=== PATIENT | female | born 1930 | race Caucasian/White ===

== ENCOUNTER 2017-05-25 12:29 | Outpatient (RCR) | payer MEDICARE, BC ==
[~2017-05-25 12:29] MED LIST: ADULT LOW DOSE81 MG PO; CARISOPRODOL350 MG PO; CATAPRES0.1 MG PO; ESGIC PLUS CAP1 EACH PO; FUROSEMIDE40 MG PO; GABAPENTIN300 MG PO; GLUCOPHAGE1000 MG PO; LEXAPRO10 MG PO; LORTAB 10-5001 EACH PO; LOSARTAN POTASS50 MG PO; METOPROLOL SUC100 MG PO; PREDNISONE; XARELTO20 MG PO
[2017-05-25 16:13] LABS: ALBUMIN 3.5 g/dL (3.5-5.0); BILIRUBIN,DIRECT 0.2 mg/dL (0.0-0.5)
[2017-05-25] MEDS ORDERED: LIDOCAINE VISC 2% SOLN 15 ML UDC ONE (16:52)
== END 2017-06-06 ==
LOC: WCC 12:29
PROVIDERS: ATTEND Podiatrist Foot & Ankle Surgery
DX: S81.801A Unspecified open wound, right lower leg, initial encounter (principal); S91.001A Unspecified open wound, right ankle, initial encounter; M96.89 Other intraoperative and postprocedural complications and disorders of the musculoskeletal system; I10 Essential (primary) hypertension; E78.00 Pure hypercholesterolemia, unspecified
CPT/HCPCS: 36415; 80076

== ENCOUNTER → 2017-09-04 | Emergency (ER) | payer MEDICARE, BC ==
[~2017-09-04] VITALS: Ht 167.6 cm; Wt 83.5 kg
--- NOTE | 2017-09-04 10:50 | Diagnostic Imaging Report ---
EXAM: FOREARM LEFT 2 VIEW DATE: 09/04/2017 9:48 AM INDICATION: \S\FELL, C/O FOREARM PAIN \S\Y COMPARISON: None FINDINGS: Nondisplaced radial head fracture again noted. Moderate degenerative changes base of first ray. Remainder of radius/ulna unremarkable. IMPRESSION: Nondisplaced radial head fracture. Signed by: Dr. Roosevelt Christiansen MD on 09/04/2017 10:47 AM
--- NOTE | 2017-09-04 10:50 | Diagnostic Imaging Report ---
EXAM: ELBOW LEFT COMPLETE DATE: 09/04/2017 9:48 AM INDICATION: \S\FELL, C/O FOREARM PAIN \S\Y COMPARISON: None FINDINGS: On the lateral view there is elevation of the anterior fat pad consistent with joint effusion. Essentially nondisplaced radial head fracture present. Associated soft tissue swelling noted. IMPRESSION: Nondisplaced radial head fracture with joint effusion. Signed by: Dr. Roosevelt Christiansen MD on 09/04/2017 10:46 AM
--- NOTE | 2017-09-04 14:52 | Diagnostic Imaging Report ---
History:Fall Comparison studies: Head CTs on 03/12/2013, 09/17/11 , 11/19/12 Technique: Axial images were obtained from the skull base to the vertex. Coronal and sagittal images reconstructed from the axial data. Intravenous contrast: None Discussion: See impression Impression: 1. No change since the previous examinations. No acute intracranial abnormalities. 2. No interval changes when compared with the previous head CTs. Persistent findings: Old right frontal craniotomy. Mild age related generalized volume loss. Mild chronic microvascular ischemic changes. Signed by: DR Ruslan Mortensen M.D. on 09/04/2017 11:15 AM
--- NOTE | 2017-09-04 14:52 | Diagnostic Imaging Report ---
EXAM: HUMERUS LEFT 2+VIEWS DATE: 09/04/2017 10:47 AM INDICATION: \S\FALL ARM PAIN \S\Y COMPARISON: Same day elbow radiographs FINDINGS: Nondisplaced radial head fracture and joint effusion separately described. Mild acromioclavicular and glenohumeral joint arthritis present. Surgical clips overlie left axilla. IMPRESSION: Radial head fracture. Signed by: Dr. Roosevelt Christiansen MD on 09/04/2017 11:19 AM
--- NOTE | 2017-09-04 14:52 | Diagnostic Imaging Report ---
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 Mild scattered IP and MCP joint degenerative changes noted. No fracture identified. IMPRESSION: Degenerative changes. Signed by: Dr. Roosevelt Christiansen MD on 09/04/2017 11:19 AM
== END | disposition home or self-care (01) ==
LOC: ER 09:12
DX: S00.83XA Contusion of other part of head, initial encounter (principal); S52.125A Nondisplaced fracture of head of left radius, initial encounter for closed fracture; W01.190A Fall on same level from slipping, tripping and stumbling with subsequent striking against furniture, initial encounter; Y92.008 Other place in unspecified non-institutional (private) residence as the place of occurrence of the external cause; I10 Essential (primary) hypertension; E11.9 Type 2 diabetes mellitus without complications; I48.91 Unspecified atrial fibrillation; F41.9 Anxiety disorder, unspecified; Z95.810 Presence of automatic (implantable) cardiac defibrillator; Z85.3 Personal history of malignant neoplasm of breast
CPT/HCPCS: 70450

== ENCOUNTER 2019-01-18 15:27 | Emergency (ER) | payer MEDICARE, BC ==
[~2019-01-18] VITALS: Ht 167.6 cm; Wt 83.5 kg
--- NOTE | 2019-01-18 17:03 | Diagnostic Imaging Report ---
Abdomen, 1 view. History: Constipation, abdominal pain. Findings: Air is scattered throughout nondilated small and large bowel. Retained stool is present scattered throughout the colon. Calcified phleboliths are present within the pelvis bilaterally. 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 IMPRESSION: Non-specific bowel gas pattern. Signed by: Ector Dinero on 01/18/2019 5:00 PM
[2019-01-18 18:14] VITALS: BP 132/63
--- OUTSIDE RECORDS SUMMARY | 2019-01-26 11:30 | XMS REPORT ---
Author Author [facility] Address Unknown Phone Unavailable Care Team Providers Care Rougher Helper Name Role Phone ECTOR KNIGHT Unavailable Unavailable Emily UMANZOR Unavailable Unavailable Payers Payer Name Policy Type Policy Number Effective Date Expiration Date Problems This patient has no known problems. Allergies, Adverse Reactions, Alerts Allergy Name Allergy Type Status Severity Reaction(s) Onset Date Inactive Date Treating Clinician Comments No Known Allergies DA Active U 2018-05-04 00:00:00 iodine DA Active SV 2017-02-21 00:00:00 shellfish derived DA Active SV 2017-02-21 00:00:00 Medications This patient has no known medications. Results Test Description Test Time Test Comments Text Results Atomic Results Result Comments [facility]-1VIEW (KUB) 2019-01-18 16:59:00 [place] [address] Patient Name: COLEMAN LANDRUM MR #: [id number] : 1930 Age/Sex: 88/F Req #: [id number] Adm Physician: Ordered by: SANFORD WELDON PUBLIC HEALTH ADVISOR Report #: [id number] Location: ER Room/Bed: Procedure: [id number] DX/ABDOMEN-1VIEW (KUB) Exam Date: 01/18/19 Exam Time: 1620 REPORT STATUS: Signed Abdomen, 1 view. History: Constipation, abd ominal pain. Findings: Air is scattered throughout nondilated small and large bowel. Retained stool is present scattered throughout the colon. Calcified phleboliths are present within the pelvis bilaterally. 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 IMPRESSION: Non-specific bowel gas pattern. Signed by: Ector Dinero on 01/18/2019 5:00 PM Dictated By: ECTOR DINERO MD 99 Transcribed By: ИРИНА on 01/18/191699 COPY TO: SANFORD WELDON PUBLIC HEALTH ADVISOR - CT LOWER EXTRM W/O C RT 2018-12-21 16:45:00 Name: COLEMAN LANDRUM [facility] : 1930 Age/S: 88 / F [address] [facility] Unit #: [id number] Loc: [place] [address] Phys: Nohemi Hurst MD Acct: [id number] Dis Date: Status: REG CLI PHONE #: [phone] Exam Date: 12/21/2018 1635 FAX #: [phone] Reason: ACUTE RIGHT HIP PAIN EXAMS: CPT CODE: [id number] [place] L[place] EXTRM W/[place] [address] EXAM: CT of the right hip without contrast; INFORMATION: Severe, acute right hip pain; M25.551 TECHNIQUE AND FINDINGS: CT dose reduction protocol; 2.5 mm axial scans; sagittal and coronal reconstructions. 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 Hardware is well-positioned; no evidence of loosening or infection. Imaged bones are intact; no evidence of fracture or dislocation. Periarticular soft tissues are unremarkable. IMPRESSION: 1. No evidence of acute osseous trauma. 2. No evidence of osteomyelitis or septic arthritis. 3. Well-positioned and intact orthopedic hardware after right hip arthroplasty. Location code: [facility] at 1645 Reported and signed by: Lucian Olivarez M.D. CC: Technologist:Gertrude Bolaños RT(R) CTDI: DLP: Trnscb Date/Time: 12/21/2018 (1644) Aniceto Orig Print D/T: S: 12/21/2018 (1111) PAGE 1 Signed Report GLUBED 2018-08-02 16:10:00 GLUBED (test code=GLUBED) 97 mg/dL 74-106 Performed by certified beam press operator at [facility] [id number] 13:19:00* Test Item Value Reference Range Comments GLUBED (test code=GLUBED) 102 mg/dL 74-106 Performed by certified beam press operator at [facility] [id number] 07:12:00* Test Item Value Reference Range Comments GLUBED (test code=GLUBED) 95 mg/dL 74-106 Performed by certified beam press operator at [facility] [id number] 21:48:00* Test Item Value Reference Range Comments GLUBED (test code=GLUBED) 98 mg/dL 74-106 Performed by certified beam press operator at [facility] [id number] 16:32:00* Test Item Value Reference Range Comments GLUBED (test code=GLUBED) 125 mg/dL 74-106 Performed by certified beam press operator at [facility] - CT CHEST W/O [id number] 14:14:00 Name: COLEMAN LANDRUM [facility] : 1930 Age/S: 88 / F [address] [place] [address] Unit #: [id number] Loc: [place] [address] Phys: Ousmane Cordova NP Acct: [id number] Dis Date: Status: ADM IN PHONE #: [phone] Exam Date: 08/01/2018 1348 FAX #: [phone] Reason: Rt scapula/rt chest wall/flank pain EXAMS: CPT CODE: [id number] CT CHEST W/O CONTRAST 48242 HISTORY: Right scapular and right chest wall and flank pain. COMPARISON: CT chest from May 11, 2018. CT chest without contrast: Automated exposure control. Ill- defined groundglass nodule within the left lateral subpleural lung base measuring 1.7 x 1.8 x 1.6 cm and appears unchanged. Additional 1.3 x 1.2 x 1 cm groundglass nodule in the medial left lung base is unchanged as well. These appear suspicious. Bronchoalveolar carcinoma can present in such a fashion. Close follow-up. No other nodules. No acute infiltrates, effusion or congestion. No bronchiectasis, honeycombing or fibrosis or endobronchial lesions. Normal caliber unopacified aorta and pulmonary arteries. Thyroid glands are unremarkable. No pathologic adenopa thy. Esophageal wall is not thickened. Axillary clips on the left. Moderat e cardiomegaly without pericardial effusion. Right ICD with the leads in t he right atrium and right ventricle. Visualized upper abdome n is unremarkable. Subcutaneous tissues and the musculature are normal in appearance. No lytic or blastic lesions are noted within the bony skeleton . IMPRESSION: No acute infiltrates, effusion o r congestion. Left lower lobe lung base 1.8 cm groundglass nod ule laterally and 1.3 cm groundglass nodule in the medial left base. The se are stable from previous examination. These appear suspicious and cou ld represent bronchoalveolar carcinoma. Close follow-up. No other lesion s. No pathologic adenopathy. at 1414 Reported and signed by : Howie Gar M.D. CC: Ousmane Cordova NP; Sky Knight Technologist:Eros Boyd RT(R),(MR),(CT) CTDI: DLP: Trnscb Date/Time: 08/01/2018 (1414) t.SDR.TH4 Orig Print D/T: S: 08/01/2018 (1869) PAGE 1 Signed Report [id number] 12:17:00* Test Item Value Reference Range Comments GLUBED (test code=GLUBED) 94 mg/dL 74-106 Performed by certified beam press operator at [facility] [id number] 06:08:00* Test Item Value Reference Range Comments GLUBED (test code=GLUBED) 103 mg/dL 74-106 Performed by certified beam press operator at [facility] [id number] 04:22:00* Test Item Value Reference Range Comments TROPONIN-I (test code=TROPI) 0.110 ng/mL 0-0.045 PREVIOUSLY CALLED COMMENTS TO CATTLE BRANDER: COLLECT 3 HOURS AFTER PREVIOUS [id number] 04:22:00* Test Item Value Reference Range Comments TROPONIN-I (test code=TROPI) 0.110 ng/mL 0-0.045 PREVIOUSLY CALLED COMMENTS TO CATTLE BRANDER: COLLECT 3 HOURS AFTER PREVIOUS [id number] 20:38:00* Test Item Value Reference Range Comments GLUBED (test code=GLUBED) 96 mg/dL 74-106 Performed by certified beam press operator at [facility] [id number] 20:03:00* Test Item Value Reference Range Comments TROPONIN-I (test code=TROPI) 0.11 ng/mL 0.00-0.056 Results called to ERROL OLGUIN by V.LAB.AV1 07/31/18 2003Critical results verified and read back by Nurse? Y COMMENTS TO CATTLE BRANDER: COLLECT 3 HOURS AFTER PREVIOUS SAMPLEBASIC METABOLIC [id number] 16:35:00* Test Item Value Reference Range Comments SODIUM (test code=NA) 146 mmol/L 135-148 POTASSIUM (test code=K) 4.7 mmol/L 3.5-5.1 CHLORIDE (test code=CL) 108 mmol/L 101-109 CARBON DIOXIDE (test code=CO2) 27.1 mmol/L 21-32 ANION GAP (test code=GAP) 16 mmol/L 10-20 GLUCOSE (test code=GLU) 101 mg/dL 74-106 BLOOD UREA NITROGEN (test code=BUN) 22 mg/dL 3-21 GLOMERULAR FILTRATION RATE (test code=GFR) 56 mL/min >=60 Estimated GFR by using Modified MDRD formula.Chronic kidney disease is defined as either kidney damageor GFR <60 mL/min/1.73 m2 for >3 months. CREATININE (test code=CREAT) 0.95 mg/dL 0.55-1.3 BUN/CREATININE RATIO (test code=BUN/CREA) 23.2 10-20 CALCIUM (test code=CA) 9.2 mg/dL 8.4-10.2 [id number] 16:35:00* Test Item Value Reference Range Comments TROPONIN-I (test code=TROPI) 0.10 ng/mL 0.00-0.056 Results called to JAMAL De La Rosa V.LAB.AV1 07/31/18 1635Critical results verified and read back by Nurse? Y B-TYPE NATRIURETIC [id number] 16:34:00* Test Item Value Reference Range Comments B-TYPE NATRIURETIC PEPTIDE (test code=BNP) 207 pg/mL 0-100 PROTHROMBIN [id number] 16:32:00* Test Item Value Reference Range Comments PROTHROMBIN TIME PATIENT (test code=PTP) 9.8 seconds 9.0-13.0 INTERNATIONAL NORMAL RATIO (test code=INR) 1.0 0.8-1.2 The therapeutic range for oral anticoagulant therapy formost indications is an international normalized ratio (INR)of between 2.0 and 3.0. The recommended therapeutic INRrange for various clinical situations is listed below: Clinical Situation INR range Pulmonary e mbolism treatment (2.0-3.0)Venous thrombosis treatmentVenous thrombosis prophylaxis (high risk surgery)Prevention of systemic embolism from: Acute myocardial infarction Valvular heart disease Atrial fibrillation Mechanical prosthetic heart valves (2.5-3.5) IS PATIENT ON ANTICOAGULANTS? NTHROMBOPLASTIN TIME [id number] 16:32:00* Test Item Value Reference Range Comments THROMBOPLASTIN TIME PARTIAL (test code=PTT) 27.8 seconds 25.5-34.3 Therapeutic Range for patients on Heparin Therapy is 2 to2.5 times their baseline PTT level. IS PATIENT ON ANTICOAGULANTS? NBASIC METABOLIC [id number] 16:28:00* Test Item Value Reference Range Comments SODIUM (test code=NA) 146 mmol/L 135-148 POTASSIUM (test code=K) 4.7 mmol/L 3.5-5.1 CHLORIDE (test code=CL) 108 mmol/L 101-109 CARBON DIOXIDE (test code=CO2) 27.1 mmol/L 21-32 ANION GAP (test code=GAP) 16 mmol/L 10-20 GLUCOSE (test code=GLU) 101 mg/dL 74-106 BLOOD UREA NITROGEN (test code=BUN) 22 mg/dL 3-21 GLOMERULAR FILTRATION RATE (test code=GFR) 56 mL/min >=60 Estimated GFR by using Modified MDRD formula.Chronic kidney disease is defined as either kidney damageor GFR <60 mL/min/1.73 m2 for >3 months. CREATININE (test code=CREAT) 0.95 mg/dL 0.55-1.3 BUN/CREATININE RATIO (test code=BUN/CREA) 23.2 10-20 CALCIUM (test code=CA) 9.2 mg/dL 8.4-10.2 [id number] 16:28:00* Test Item Value Reference Range Comments TROPONIN-I (test code=TROPI) ng/mL 0-0.045 - XR CHEST 2 [id number] 16:25:00 Name: COLEMAN LANDRUM [facility] : 1930 Age/S:88 /F [address] [facility] Unit#:[id number] Loc: [place] [address] Phys: Livan Del Cid MD Dis Date: PHONE #: [phone] Status: REG ER FAX #: [phone] Exam Date: 07/31/2018 Reason: chest pain EXAMS: CPT CODE: [id number] XR CHEST 2 V 49829 REASON FOR EXAM: chest pain Exam Order Date: 07/31/2018 4:01 PM Ordering MGreg: Livan Del Cid MD PROCEDURE: - XR CHEST 2 V COMPARISON: 02/21/2017 FINDINGS: PA and lateral views of the chest show clear lungs without evidence of consolidation. No evidence of effusion. The heart size is minimally enlarged. Pulmonary vasculatures are unremarkable. The osseous structures are grossly intact axillary lymph node dissection clips. Stable appearance of the right subclavian pacemaker. IMPRESSION: No active disease. at 1625 Reported and signed by: Loy Oleary M.D. CC: Livan Del Cid MD Technologist: Liliane Seo Trnscrpt Data: 07/31/2018 (9532) Joni Orig Print D/T: S: 07/31/2018 (1305) PAGE 1 Signed Report CBC W/O [id number] 16:15:00* Test Item Value Reference Range Comments WHITE BLOOD CELL (test code=WBC) 9.9 K/mm3 4.5-12.5 RED BLOOD CELL (test code=RBC) 4.62 mill/mm3 3.7-5.2 HEMOGLOBIN (test code=HGB) 12.6 gram/dL 11.5-15.5 HEMATOCRIT (test code=HCT) 39.7 % 36.0-46.0 MEAN CELL VOLUME (test code=MCV) 85.9 fL 80-98 MEAN CELL HGB (test code=MCH) 27.3 picogram 27.0-33.0 MEAN CELL HGB CONCETRATION (test code=MCHC) 31.7 gram/dL 33.0-36.0 RED CELL DISTRIBUTION WIDTH (test code=RDW) 17.0 % 11.6-16.2 RED CELL DISTRIBUTION WIDTH SD (test code=RDW-SD) 54.8 fL 37.0-51.0 PLATELET COUNT (test code=PLT) 356 K/mm3 150-450 MEAN PLATELET VOLUME (test code=MPV) 9.8 fL 6.7-11.0 - CT L-SPINE W/O [id number] 16:38:00 Name: COLEMAN LANDRUM [facility] : 1930 Age/S: 88 / F [address] [facility] Unit #: [id number] Loc: [place] [address] Phys: Nohemi Hurst MD Acct: [id number] Dis Date: Status: REG CLI PHONE #: [phone] Exam Date: 07/11/2018 1630 FAX #: [phone] Reason: CHRONIC PAIN EXAMS: CPT CODE: [id number] CT L-SPINE W/O CONTRAST 89026 REASON FOR EXAM: CHRONIC PAIN EXAM ORDER DATE: 07/11/2018 4:24 PM Ordering Estelle: Nohemi Ramirez MD PROCEDURE: - CT L-SPINE W/O CONTRAST FINDINGS: CT images of the lumbar spine were obtained without IV contrast at 2.5mm. Reconstructed coronal and sagittal images were also provided. Dose modulation, iterative reconstruction, and/or weight based adjustment of the MA/KV was utilized to reduce the radiation dose to as low as reasonably achievable. The osseous structures are intact. Minimal anterior translation of L4 over 5 with left sided pars intera rticularis defect. No evidence of acute or chronic compression fracture The central canal is patent. Mild narrowing of L4-5 a nd L5-S1 disc space IMPRESSION: Grade 1 spondylolisthesis of L4- 5. at 1638 Reported and signed by: Loy Oleary M.D. CC: Technologist:Gertrude COLLIER(R) CTDI: DLP: Trnscb Date/Time: 07/11/2018 ( 1638) t.JUSTINE.GLORIAL Orig Print D/T: S: 07/11/2018 (5548) PAGE 1 Signed Report COAGULATION TIME [id number] 09:31:00* Test Item Value Reference Range Comments COAGULATION TIME ACTIVATED (test code=ACT) 313 seconds 62.8-88.0 COAGULATION TIME [id number] 09:31:00* Test Item Value Reference Range Comments COAGULATION TIME ACTIVATED (test code=ACT) 362 seconds 62.8-88.0 COAGULATION TIME [id number] 09:31:00* Test Item Value Reference Range Comments COAGULATION TIME ACTIVATED (test code=ACT) 198 seconds 62.8-88.0 COAGULATION TIME [id number] 23:09:00* Test Item Value Reference Range Comments COAGULATION TIME ACTIVATED (test code=ACT) 204 seconds 62.8-88.0 [id number] 12:37:00* Test Item Value Reference Range Comments GLUBED (test code=GLUBED) 207 mg/dL 74-106 Performed by certified beam press operator at [facility] [id number] 06:17:00* Test Item Value Reference Range Comments GLUBED (test code=GLUBED) 173 mg/dL 74-106 Performed by certified beam press operator at [facility] [id number] 20:53:00* Test Item Value Reference Range Comments GLUBED (test code=GLUBED) 216 mg/dL 74-106 Performed by certified beam press operator at [facility] [id number] 16:35:00* Test Item Value Reference Range Comments GLUBED (test code=GLUBED) 262 mg/dL 74-106 Performed by certified beam press operator at [facility] [id number] 11:36:00* Test Item Value Reference Range Comments GLUBED (test code=GLUBED) 193 mg/dL 74-106 Performed by certified beam press operator at [facility] [id number] 05:24:00* Test Item Value Reference Range Comments GLUBED (test code=GLUBED) 167 mg/dL 74-106 Performed by certified beam press operator at [facility] - CT CHEST W/O [id number] 21:35:00 Name: COLEMAN LANDRUM [facility] : 1930 Age/S: 87 / F [address] [facility] Unit #: [id number] Loc: [place] [address] Phys: Sky Knight MD Acct: [id number] Dis Date: Status: ADM IN PHONE #: [phone] Exam Date: 05/11/20182116 FAX #: [phone] Reason: SOB/COUGH/WHEEZING EXAMS: CPT CODE: [id number] CT CHEST W/O CONTRAST 30073 REASON FOR EXAM: SOB/COUGH/WHEEZING EXAM ORDER DATE: 05/11/2018 4:33 PM Ordering M.Cheyenne: Sky Gong MD PROCEDURE: - CT CHEST W/O CONTRAST FINDINGS: CT images of the chest were obtained without IV contrast. Reconstructed sagittal and coronal images of the chest were provided for interpretation. Dose modulation, iterative reconstruction, and/or weight based adjustment of the MA/KV was utilized to reduce the radiation dose to as low as reasonably achievable. The heart size is minimally enlarged. No evidence of pericardial effusion. The thoracic aorta is unremarkable. No evidence of mediastinal or hilar adenopathy. The lungs are clear. IMPRESSION: Minimal cardiomegaly and small right pleural effusion at 2132 Reported and signed by: Loy Oleary M.D. CC: Nabeel Mallory MD; Sky Knight chnologist:JOSE MANUEL PACK, RT(R) CT CTDI: DLP: Trnscb Date/ Time: 05/11/2018 (2134) AroldoL Orig Print D/T: S: 05/2018 (2137) CTDI: DLP: PAGE 1 S igned Report CBC W/AUTO [id number] 09:11:00* Test Item Value Reference Range Comments WHITE BLOOD CELL (test code=WBC) 13.1 K/mm3 4.5-12.5 RED BLOOD CELL (test code=RBC) 4.00 mill/mm3 3.7-5.2 HEMOGLOBIN (test code=HGB) 10.7 gram/dL 11.5-15.5 HEMATOCRIT (test code=HCT) 36.3 % 36.0-46.0 MEAN CELL VOLUME (test code=MCV) 87.0 fL 80-98 MEAN CELL HGB (test code=MCH) 26.8 picogram 27.0-33.0 MEAN CELL HGB CONCETRATION (test code=MCHC) 30.7 gram/dL 33.0-36.0 RED CELL DISTRIBUTION WIDTH (test code=RDW) 16.4 % 11.6-16.2 RED CELL DISTRIBUTION WIDTH SD (test code=RDW-SD) 51.9 fL 37.0-51.0 PLATELET COUNT (test code=PLT) 346 K/mm3 150-450 MEAN PLATELET VOLUME (test code=MPV) 11.1 fL 6.7-11.0 NEUTROPHIL % (test code=NT%) 81.8 % 39.0-69.0 IMMATURE GRANULOCYTE % (test code=IG%) 0.8 % 0.0-5.0 LYMPHOCYTE % (test code=LY%) 7.4 % 25.0-55.0 MONOCYTE % (test code=MO%) 9.8 % 0.0-10.0 EOSINOPHIL % (test code=EO%) 0.0 % 0.0-5.0 BASOPHIL % (test code=BA%) 0.2 % 0.0-1.0 NUCLEATED RBC % (test code=NRBC%) 0.0 % 0-0 NEUTROPHIL # (test code=NT#) 10.67 K/mm3 1.8-7.7 IMMATURE GRANULOCYTE # (test code=IG#) 0.11 x10 3/uL 0-0.03 LYMPHOCYTE # (test code=LY#) 0.97 K/mm3 1.0-5.0 MONOCYTE # (test code=MO#) 1.28 K/mm3 0-0.8 EOSINOPHIL # (test code=EO#) 0.00 K/mm3 0.0-0.5 BASOPHIL # (test code=BA#) 0.02 K/mm3 0.0-0.2 NUCLEATED RBC # (test code=NRBC#) 0.00 K/mm3 0.0-0.1 MANUAL DIFF REQUIRED (test code=MDIFF) NO CBC W/AUTO [id number] 09:04:00* Test Item Value Reference Range Comments WHITE BLOOD CELL (test code=WBC) K/mm3 4.5-12.5 RED BLOOD CELL (test code=RBC) mill/mm3 3.7-5.2 HEMOGLOBIN (test code=HGB) gram/dL 11.5-15.5 HEMATOCRIT (test code=HCT) 36.3 % 36.0-46.0 MEAN CELL VOLUME (test code=MCV) fL 80-98 MEAN CELL HGB (test code=MCH) picogram 27.0-33.0 MEAN CELL HGB CONCETRATION (test code=MCHC) gram/dL 33.0-36.0 RED CELL DISTRIBUTION WIDTH (test code=RDW) % 11.6-16.2 RED CELL DISTRIBUTION WIDTH SD (test code=RDW-SD) fL 37.0-51.0 PLATELET COUNT (test code=PLT) K/mm3 150-450 MEAN PLATELET VOLUME (test code=MPV) fL 6.7-11.0 NEUTROPHIL % (test code=NT%) % 39.0-69.0 IMMATURE GRANULOCYTE % (test code=IG%) % 0.0-5.0 LYMPHOCYTE % (test code=LY%) % 25.0-55.0 MONOCYTE % (test code=MO%) % 0.0-10.0 EOSINOPHIL % (test code=EO%) % 0.0-5.0 BASOPHIL % (test code=BA%) % 0.0-1.0 NEUTROPHIL # (test code=NT#) K/mm3 1.8-7.7 LYMPHOCYTE # (test code=LY#) K/mm3 1.0-5.0 MONOCYTE # (test code=MO#) K/mm3 0-0.8 EOSINOPHIL # (test code=EO#) K/mm3 0.0-0.5 BASOPHIL # (test code=BA#) K/mm3 0.0-0.2 BASIC METABOLIC [id number] 08:05:00* Test Item Value Reference Range Comments SODIUM (test code=NA) 138 mmol/L 136-145 POTASSIUM (test code=K) 4.7 mmol/L 3.5-5.1 CHLORIDE (test code=CL) 107.0 mmol/L 98-107 CARBON DIOXIDE (test code=CO2) 22.0 mmol/L 21-32 ANION GAP (test code=GAP) 13.7 10-20 GLUCOSE (test code=GLU) 162 mg/dL 74-106 BLOOD UREA NITROGEN (test code=BUN) 27 mg/dL 7-18 GLOMERULAR FILTRATION RATE (test code=GFR) 43 mL/min >=60 Estimated GFR by using Modified MDRD formula.Chronic kidney disease is defined as either kidney damageor GFR <60 mL/min/1.73 m2 for >3 months. CREATININE (test code=CREAT) 1.20 mg/dL 0.55-1.02 Note change in reference range due to change in reagent. BUN/CREATININE RATIO (test code=BUN/CREA) 22.5 10-20 CALCIUM (test code=CA) 9.6 mg/dL 8.5-10.1 BASIC METABOLIC [id number] 07:43:00* Test Item Value Reference Range Comments SODIUM (test code=NA) 138 mmol/L 136-145 POTASSIUM (test code=K) 4.7 mmol/L 3.5-5.1 CHLORIDE (test code=CL) 107.0 mmol/L 98-107 CARBON DIOXIDE (test code=CO2) mmol/L 21-32 ANION GAP (test code=GAP) 10-20 GLUCOSE (test code=GLU) mg/dL 74-106 BLOOD UREA NITROGEN (test code=BUN) mg/dL 7-18 GLOMERULAR FILTRATION RATE (test code=GFR) mL/min >=60 CREATININE (test code=CREAT) mg/dL 0.55-1.02 BUN/CREATININE RATIO (test code=BUN/CREA) 10-20 CALCIUM (test code=CA) mg/dL 8.5-10.1 [id number] 17:30:00* Test Item Value Reference Range Comments GLUBED (test code=GLUBED) 138 mg/dL 74-106 Performed by certified beam press operator at [facility] [id number] 12:35:00* Test Item Value Reference Range Comments GLUBED (test code=GLUBED) 122 mg/dL 74-106 Performed by certified beam press operator at [facility] [id number] 10:59:00* Test Item Value Reference Range Comments GLUBED (test code=GLUBED) 98 mg/dL 74-106 Performed by certified beam press operator at [facility] BASIC METABOLIC [id number] 12:27:00* Test Item Value Reference Range Comments SODIUM (test code=NA) 140 mmol/L 136-145 POTASSIUM (test code=K) 4.0 mmol/L 3.5-5.1 CHLORIDE (test code=CL) 108.0 mmol/L 98-107 CARBON DIOXIDE (test code=CO2) 25.0 mmol/L 21-32 ANION GAP (test code=GAP) 11.0 10-20 GLUCOSE (test code=GLU) 111 mg/dL 74-106 BLOOD UREA NITROGEN (test code=BUN) 14 mg/dL 7-18 GLOMERULAR FILTRATION RATE (test code=GFR) > 60 mL/min >=60 Estimated GFR by using Modified MDRD formula.Chronic kidney disease is defined as either kidney damageor GFR <60 mL/min/1.73 m2 for >3 months. CREATININE (test code=CREAT) 0.80 mg/dL 0.55-1.02 Note change in reference range due to change in reagent. BUN/CREATININE RATIO (test code=BUN/CREA) 17.5 10-20 CALCIUM (test code=CA) 9.3 mg/dL 8.5-10.1 PROTHROMBIN [id number] 12:03:00* Test Item Value Reference Range Comments PROTHROMBIN TIME PATIENT (test code=PTP) 15.0 seconds 9.0-14.0 INTERNATIONAL NORMAL RATIO (test code=INR) 1.3 0.8-1.2 The therapeutic range for oral anticoagulant therapy formost indications is an international normalized ratio (INR)of between 2.0 and 3.0. The recommended therapeutic INRrange for various clinical situations is listed below: Clinical Situation INR range Pulmonary e mbolism treatment (2.0-3.0)Venous thrombosis treatmentVenous thrombosis prophylaxis (high risk surgery)Prevention of systemic embolism from: Acute myocardial infarction Valvular heart disease Atrial fibrillation Mechanical prosthetic heart valves (2.5-3.5) THROMBOPLASTIN TIME [id number] 12:03:00* Test Item Value Reference Range Comments THROMBOPLASTIN TIME PARTIAL (test code=PTT) 43.1 seconds 25.0-36.5 CBC W/AUTO [id number] 11:41:00* Test Item Value Reference Range Comments WHITE BLOOD CELL (test code=WBC) 8.9 K/mm3 4.5-12.5 RED BLOOD CELL (test code=RBC) 4.05 mill/mm3 3.7-5.2 HEMOGLOBIN (test code=HGB) 11.0 gram/dL 11.5-15.5 HEMATOCRIT (test code=HCT) 35.2 % 36.0-46.0 MEAN CELL VOLUME (test code=MCV) 86.9 fL 80-98 MEAN CELL HGB (test code=MCH) 27.2 picogram 27.0-33.0 MEAN CELL HGB CONCETRATION (test code=MCHC) 31.3 gram/dL 33.0-36.0 RED CELL DISTRIBUTION WIDTH (test code=RDW) 15.9 % 11.6-16.2 RED CELL DISTRIBUTION WIDTH SD (test code=RDW-SD) 50.2 fL 37.0-51.0 PLATELET COUNT (test code=PLT) 324 K/mm3 150-450 MEAN PLATELET VOLUME (test code=MPV) 10.2 fL 6.7-11.0 NEUTROPHIL % (test code=NT%) 61.6 % 39.0-69.0 IMMATURE GRANULOCYTE % (test code=IG%) 1.2 % 0.0-5.0 LYMPHOCYTE % (test code=LY%) 20.1 % 25.0-55.0 MONOCYTE % (test code=MO%) 11.8 % 0.0-10.0 EOSINOPHIL % (test code=EO%) 4.7 % 0.0-5.0 BASOPHIL % (test code=BA%) 0.6 % 0.0-1.0 NUCLEATED RBC % (test code=NRBC%) 0.0 % 0-0 NEUTROPHIL # (test code=NT#) 5.49 K/mm3 1.8-7.7 IMMATURE GRANULOCYTE # (test code=IG#) 0.11 x10 3/uL 0-0.03 LYMPHOCYTE # (test code=LY#) 1.79 K/mm3 1.0-5.0 MONOCYTE # (test code=MO#) 1.05 K/mm3 0-0.8 EOSINOPHIL # (test code=EO#) 0.42 K/mm3 0.0-0.5 BASOPHIL # (test code=BA#) 0.05 K/mm3 0.0-0.2 NUCLEATED RBC # (test code=NRBC#) 0.00 K/mm3 0.0-0.1 MANUAL DIFF REQUIRED (test code=MDIFF) NO CREATININE W ESTIMATED [id number] 09:26:00* Test Item Value Reference Range Comments BEDSIDE CREATININE (test code=CREATBED) mg/dL 0.7-1.3 GLOMERULAR FILTRATION RATE POC (test code=GFRBED) 81 >60 CREATININE W ESTIMATED [id number] 09:26:00* Test Item Value Reference Range Comments BEDSIDE CREATININE (test code=CREATBED) 0.69 mg/dL 0.7-1.3 GLOMERULAR FILTRATION RATE POC (test code=GFRBED) > 60 >60 Previously reported result: 81 Edited by: ABIGAIL on 05/03/18:42145105/03/18 0926: GFRBED previously reported as: 81 H BREAST ULTRASOUND [id number] 16:21:28 - DIAG MAMM BILATERAL MINNIE CAD DIGITALBILATERAL DIGITAL DIAGNOSTIC MAMMOGRAM 3D/2D WITH CAD: 03/13/2018CLINICAL: Dense breasts. Digital breast tomosynthesis was performed in addition to routine CC and MLO views. Current mammographic images were evaluated by either a [employer] M-Vu or a My [employer] ImageTinybopcker CAD (computer aided detection system). Comparison is made to exams dated 03/07/2017 mammogram and 11/04/2015 mammogram - [facility] The tissue of both breasts is predominantly fatty. The left breast has been surgically removed. TRAM flap reconstruction in place. The reconstructed breast shows no sign of neoplasm. No suspicious mass, architectural distortion, malignant type calcification, or lymph node abnormality detected. INCOMPLETE ASSESSMENT: ADDITIONAL IMAGING EVALUATION RECOMMENDEDUltrasound pending for additional evaluation. Resume annual s creening mammography in one year. - BREAST ULTRASOUND BILATERALULTRASOUND OF SHANNAN TH BREASTS AND BOTH AXILLA: 03/13/2018Comparison is made to exams dated 03/07/2017 mammogram and 11/04/2015 mammogram - [facility] Real-time ultr asound of both breasts and both axilla was performed. No abnormalities were see n sonographically in the right breast or either axilla. The left breast has bee n surgically removed. TRAM flap reconstruction in place. The reconstructed breas t shows no abnormalities. IMPRESSION: BENIGN There is no sonographic evidence o f malignancy. Patient has been informed that she should have a screening mamm ogram and supplemental ultrasound in 1 year.Rosa Vines M.D. dm/:2018 16:21:28 copy to: Christiana Jaime M.D., ph: [phone], fax: [phone] ing Technologist: Siri CONTI, [facility]-letter sent: BIRA DS 1-2 Combo FU Letter Mammogram BI-RADS: 0 Indeterminate Ultrasound BI-RADS: 2 BenignDIAG MAMM BILATERAL MINNIE CAD [id number] 16:21:28 - DIAG MAMM BILATERAL MINNIE CAD DIGITALBILATERAL DIGITAL DIAGNOSTIC MAMMOGRAM 3D/2D WITH CAD: 03/13/2018CLINICAL: Dense breasts. Digital breast tomosynthesis was performed in addition to routine CC and MLO views. Current mammographic images were evaluated by either a [employer] M-Vu or a My True Fit ImageChecker CAD (computer aided detection system). Comparison is made to exams dated 03/07/2017 mammogram and 11/04/2015 mammogram - [facility] The tissue of both breasts is predominantly fatty. The left breast has been surgically removed. TRAM flap reconstruction in place. The reconstructed breast shows no sign of neoplasm. No suspicious mass, architectural distortion, malignant type calcification, or lymph node abnormality detected. INCOMPLETE ASSESSMENT: ADDITIONAL IMAGING EVAL UATION RECOMMENDEDUltrasound pending for additional evaluation. Resume annual s creening mammography in one year. - BREAST ULTRASOUND BILATERALULTRASOUND OF SHANNAN TH BREASTS AND BOTH AXILLA: 03/13/2018Comparison is made to exams dated 03/07/2017 mammogram and 11/04/2015 mammogram - [facility]-. Real-time ultr asound of both breasts and both axilla was performed. No abnormalities were see n sonographically in the right breast or either axilla. The left breast has bee n surgically removed. TRAM flap reconstruction in place. The reconstructed breas t shows no abnormalities. IMPRESSION: BENIGN There is no sonographic evidence o f malignancy. Patient has been informed that she should have a screening mamm ogram and supplemental ultrasound in 1 year.Rosa Vines M.D. dm/:2018 16:21:28 copy to: Christiana Jaime M.D., ph: [phone], fax: [phone] ing Technologist: Siri CONTI, [facility]-letter sent: BIRA DS 1-2 Combo FU Letter Mammogram BI-RADS: 0 Indeterminate Ultrasound BI-RADS: 2 BenignHAND 3+ VIEWS [id number] 11:19:00 [place] [address] Patient Name: COLEMAN LANDRUM MR #: [id number] : 1930 Age/Sex: 87/F Req #: [id number] [facility] Physician: Ordered by: DENNIS MUANZOR MD Report #: [id number] Location: ER Room/Bed: Procedure: [id number] DX/HAND 3+ VIEWS LEFT Exam D ate: Exam Time: REPORT STATUS: Signed EXAM : HAND 3+ VIEWS LEFT DATE: 09/04/2017 10:47 AM INDICATION: COMPARISON: None FINDINGS: 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 Mild scattered IP and MCP joint degenerative changes noted. No fra cture identified. IMPRESSION: Degenerative changes. Signed by: Dr. Paula Christiansen MD on 09/04/2017 11:19 AM Dictated By: PAULA CHRISTIANSEN MD El ectronically Signed By: PAULA CHRISTIANSEN MD on 09/04/171118 Transcribed By: WYATT GARIBAY on 09/04/171118 COPY TO: DENNIS UMANZOR MD HUMERUS LEFT 2+[id number] 11:18:00 [place] [address] Patient Name: COLEMAN LANDRUM MR #: [id number] : 1930 Age/Sex: 87/F Req #: [id number] Adm Physician: Ordered by: DENNIS UMANZOR MD Report #: [id number] Location: ER Room/Bed: Procedure: [id number] DX/HUMERUS LEFT 2+VIEWS Exam Date: Exam Time: REPORT STATUS: Signed EX AM: HUMERUS LEFT 2+VIEWS DATE: 09/04/2017 10:47 AM INDICATION: COMPARISON: Same day elbow radiographs FINDINGS: Nondisplaced radial head fracture and joint effusion separately described. Mild acromiocl avicular and glenohumeral joint arthritis present. Surgical clips overlie left axilla. IMPRESSION: Radial head fracture. Signed by: Dr. Paula solis MD on 09/04/2017 11:19 AM Dictated By: PAULA CHRISTIANSEN MD [facility] Signed By: PAULA CHRISTIANSEN MD on 09/04/17 111 Transcribed By: ИРИНА on 111 COPY TO: DENNIS UMANZOR MD CT BRAIN [id number] 11:04:00 [place] [address] Patient Name: COLEMAN LANDRUM MR #: [id number] : 1930 Age/Sex: 87/F Req #: [id number] [facility] Physician: Ordered by: DENNIS UMANZOR MD Report #: [id number] Location: ER Room/Bed: Procedure: [id number] CT/CT BRAIN WO Exam Date: Exam Time: 1030 REPORT STATUS: Signed ADDENDUM #1 Dose modulation, iterative reconstruction, and/or weight based adjustment of the mA/kV was utilized to reduce the radia tion dose to as low as reasonably achievable. Signed by: DR Ruslan Mortensen M.D. on 10/04/2017 7:54 PM ORIGINAL REPORT H istory:Fall Comparison studies: Head CTs on 03/12/2013, 09/17/11 , 11/19/12 Technique: Axial images were obtained from the skull base to the vertex. Cor onal and sagittal images reconstructed from the axial data. Intravenous contra st: None Discussion: See impression Impression: 1. No change since the previous examinations. No acute intracranial abnormalities. 2. No interval changes when compared with the previous head CTs. Persistent f indings: Old right frontal craniotomy. Mild age related generalized volume l oss. Mild chronic microvascular ischemic changes. Signed by: DR Ruslan Mortensen M.D. on 09/04/2017 11:15 AM Dictated By: RUSLAN JIMENEZ MD 53 Tr anscribed By: ИРИНА on 09/04/17 1115 COPY TO: DENNIS UMANZOR MD ELBOW LEFT [id number] 10:46:00 [place] [address] Patient Name: COLEMAN LANDRUM MR #: [id number] : 1930 Age/Sex: 87/F Req #: [id number] Adm Physician: Ordered by: DENNIS UMANZOR MD Report #: [id number] Location: ER Room/Bed: Procedure: [id number] DX/ELBOW LEFT COMPLETE Exam Date: 09/04/17 Exam Time: 1035 REPORT STATUS: S igned ADDENDUM #1 Addendum: Indication, Pain S igned by: Dr. Paula Christiansen MD on 09/26/2017 9:04 AM ORIGINAL REPORT * EXAM: ELBOW LEFT COMPLETE DATE: 09/04/2017 9:48 AM INDICA TION: COMPARISON: None FINDINGS: On the lateral view there is elevation of the anterior fat pad consistent with joint effusion. Ess entially nondisplaced radial head fracture present. Associated soft tissue swe lling noted. IMPRESSION: Nondisplaced radial head fracture with joint ef fusion. Signed by: Dr. Paula Christiansen MD on 09/04/2017 10:46 AM Dictat ed By: PAULA CHRISTIANSEN MD 1046 COPY TO: DENNIS UMANZOR MD FOREARM LEFT 2 [id number] 10:46:00 [place] [address] Patient Name: COLEMAN LANDRUM MR #: [id number] : 1930 Age/Sex: 87/F Req #: [id number] Adm Physician: Ordered by: DENNIS UMANZOR MD Report #: [id number] Location: ER Room/Bed: Procedure: [id number] DX/FOREARM LEFT 2 VIEW Exam Date: Exam Time: REPORT STATUS: Signed EXA M: FOREARM LEFT 2 VIEW DATE: 09/04/2017 9:48 AM INDICATION: COMPARISON: None FINDINGS: Nondisplaced radial head fracture ag ain noted. Moderate degenerative changes base of first ray. Remainder of radiu s/ulna unremarkable. IMPRESSION: Nondisplaced radial head fracture. Signed by: Dr. Paula Christiansen MD on 09/04/2017 10:47 AM Dictated By: PAULA CHRISTIANSEN MD [address] scribed By: ИРИНА on 09/04/17 1047 COPY TO: DENNIS UMANZOR MD
--- OUTSIDE RECORDS SUMMARY | 2019-01-26 11:30 | XMS REPORT | Summary of Care ---
Author Author Eun Armas Organization Unknown Address Unknown Phone Unavailable Care Team Providers Care Application Spec Name Role Phone R.N. Unavailable Unavailable Functional Status Name Dates Details Functional status health issues are not documented Status: Name Dates Details Cognitive status health issues are not documented Status: Problems Name Dates Details Pain management (780.96, R52) Status: Active Medications Name Dates Details Medications not documented Allergies and Adverse Reactions Name Dates Details Allergy history not documented Status: Procedures Procedure Dates Details Procedures not documented Immunization Name Dates Details Immunizations not documented Social History Name Dates Details Unknown if ever smoked Vital Signs Date Test Result Details No Known Vitals to report Results Date Description Value Details [id number] [U] XRAY HIP UNILATERAL MIN 2 VWS RIGHT 46577 XR HIP UNILATERAL MIN 2 VWS RIGHT Images acquired, not reported on this accession number. Plan of Care Name Dates Details Planned Observations Planned Goals not documented Instructions Name Dates Details Instructions not documented Encounters Appointment; LYNNETTE BURDICK M.D. Encounter Diagnosis: Problem not documented On: 27-Jan-2017 12:30
== END 2019-01-18 18:16 | disposition home or self-care (01) ==
LOC: ER 15:27
DX: K59.00 Constipation, unspecified (principal); I10 Essential (primary) hypertension; E11.9 Type 2 diabetes mellitus without complications; I48.91 Unspecified atrial fibrillation; F41.9 Anxiety disorder, unspecified; Z85.3 Personal history of malignant neoplasm of breast
CPT/HCPCS: 74018; 99284

== ENCOUNTER 2019-06-13 14:49 | Inpatient (IN) | payer MEDICARE, BC, OTHER ==
[~2019-06-13] VITALS: Ht 167.6 cm; Wt 83.5 kg
[2019-06-13] MEDS ORDERED: PRAVACHOL20 MG PO (15:12)
[2019-06-13] MEDS ORDERED: ELIQUIS5 M1 PEG (15:12)
[2019-06-13] MEDS ORDERED: POTASSIUM CHLO20 ME1 PO (15:12)
[2019-06-13] MEDS ORDERED: DILTIAZEM 24HR120 M1 PO (15:12)
[2019-06-13] MEDS ORDERED: CITALOPRAM HBR20 MG PO (15:12)
[2019-06-13] MEDS ORDERED: PANTOPRAZOLE 40 MG 10ML VIAL IV ONE (15:18)
[2019-06-13] MEDS ORDERED: SODIUM CHLORIDE 0.9% 1000ML 1,000 ML IV STA (15:18)
[2019-06-13] MEDS ORDERED: ONDANSETRON HCL INJ 2MG/ML 2ML 2 MG/ML VIAL IV ONE (15:18)
[2019-06-13] MEDS ORDERED: MORPHINE SULFATE 2 MG/ML SYR 1ML IV STA (15:18)
[2019-06-13] MEDS ORDERED: MORPHINE SULFATE INJ 4 MG/ML INJ 1ML IV ONE (15:30)
[2019-06-13 16:32] LABS: BASOPHILS # (AUTO) 0.1 (0.0-0.1); BASOPHILS % 0.6 % (0.0-1.0); EOSINOPHILS # (AUTO) 0.3 (0.0-0.4); EOSINOPHILS % 2.1 % (0.0-6.0); HEMOGLOBIN 9.3 g/dL (12.0-16.0); LYMPHOCYTES # (AUTO) 2.4 (1.0-3.2); LYMPHOCYTES % 18.3 % (18.0-39.1); MEAN CORPUSCULAR HEMOGLOBIN 23.3 pg (28-32); MEAN CORPUSCULAR VOLUME 77.5 fL (81-99); MONOCYTES # (AUTO) 1.8 (0.2-0.8); MONOCYTES % 13.8 % (4.4-11.3); NEUTROPHILS # (AUTO) 8.3 (2.1-6.9); NEUTROPHILS % 64.5 % (38.7-80.0); PLATELET COUNT 497 x10e3/uL (140-360); RED CELL DISTRIBUTION WIDTH 18.4 % (11.7-14.4)
[2019-06-13 16:39] LABS: INR 1.35; PROTHROMBIN TIME 17.6 seconds (11.9-14.5)
[2019-06-13 16:42] LABS: BILIRUBIN,URINE NEGATIVE (NEGATIVE); CLARITY,URINE SL CLOUDY (CLEAR); COLOR,URINE YELLOW (YELLOW); KETONES,URINE NEGATIVE (NEGATIVE); LEUKOCYTE ESTERASE ,URINE NEGATIVE (NEGATIVE); NITRITE,URINE NEGATIVE (NEGATIVE); PROTEIN,URINE DIPSTICK TRACE (NEGATIVE); URINE UROBILINOGEN 0.2 mg/dL (0.2 - 1)
[2019-06-13 16:49] LABS: ALBUMIN 4.1 g/dL (3.5-5.0); ALBUMIN/GLOBULIN RATIO 1.4 (0.8-2.0); ANION GAP 17.3 mmol/L (8-16); CALCIUM 9.1 mg/dL (8.4-10.2); CREATININE, SERUM 1.76 mg/dL (0.57-1.11); MAGNESIUM 2.3 MG/DL (1.3-2.1)
[2019-06-13 16:51] LABS: POTASSIUM 5.3 mmol/L (3.5-5.1)
--- NOTE | 2019-06-13 16:53 | Diagnostic Imaging Report ---
EXAMINATION: CHEST SINGLE (PORTABLE) INDICATION: Abdominal pain COMPARISON: None FINDINGS: LINES/TUBES:Right chest pacer LUNGS:The lungs are well-inflated. No focal consolidation or pulmonary edema. PLEURA:No pleural effusion or pneumothorax. MEDIASTINUM:The cardiomediastinal silhouette appears mildly enlarged. BONES/SOFT TISSUES:No acute osseous injury. Surgical clips in the left axilla. Postoperative findings of the right proximal humerus. ABDOMEN:No free air. IMPRESSION: No focal pneumonia or pulmonary edema. Signed by: Bright Fitzgerald MD on 06/13/2019 4:50 PM
[2019-06-13 16:54] LABS: BACTERIA,URINE FEW /HPF; EPITHELIAL CELLS,URINE FEW /LPF; WBC,URINE (MAN) 0-5 /HPF (0-5)
[2019-06-13 16:56] LABS: CREATINE KINASE MB 7.2 ng/mL (0-5.0)
--- NOTE | 2019-06-13 18:02 | Diagnostic Imaging Report ---
CT Abdomen and Pelvis without contrast INDICATION: ^RUQ ABD PAIN ^[id number] ^1700 TECHNIQUE: Thin collimation axial images obtained from the diaphragm to the level of the pubic symphysis without nonionic intravenous contrast. Dose reduction techniques used: Automated exposure control, adjustment of the mAs and/or kVp according to patient size, standardized low-dose protocol, and/or iterative reconstruction technique. RADIATION DOSE: Total DLP: 740.07 mGy*cm Estimated effective dose: (DLP x 0.015 x size factor) mSv CTDIvol has been reviewed. It is below the limits set by the Radiation Protocol Committee (RPC). COMPARISON: Report of CTA of the abdomen/pelvis performed 03/12/2013. Images are not available for comparison. ABDOMEN FINDINGS: Lung Bases: Posterior layering right pleural effusion measures 2.5 cm. Semisolid nodule in the lateral left lower lobe measures 2.0 x 1.7 cm this contains several small cystic spaces within. The heart is enlarged and contains a dual-lead pacemaker. The distal esophagus is normal. Liver: Normal in attenuation without mass. The intrahepatic veins are prominent. Gallbladder: Absent. No ductal dilatation. Pancreas: Diffusely atrophic. No calcifications. No ductal dilatation. Spleen: Normal in size. Low attenuating lesion measures 1.1 x 1.8 cm. This was not reported on previous exam. Adrenal Glands: No evidence for mass. Kidneys: Right: Lobulated in contour. No renal calculus. No cortical mass or hydronephrosis. Left: Lobulated in contour. No renal calculus. No cortical mass or hydronephrosis. Lymph Nodes: No enlarged abdominal or periaortic lymph nodes. Aorta: Normal in diameter with calcifications. PELVIS FINDINGS: Bowel: Stomach: Collapsed but otherwise normal. Small Bowel: Normal in caliber with normal wall thickness. Large Bowel: Mild to moderate stool burden throughout. There are a few scattered diverticula in the sigmoid colon. No focal mural thickening. Appendix: Not visualized. Bladder: Poorly visualized due to beam Rosa artifact from I lateral hip prostheses. Ureters: No ureteral dilatation or calculus. The uterus is absent. No adnexal mass. Peritoneum/retroperitoneum: Small amount of diffuse abdominal pelvic ascites. A calcification posterior to the cecum measures 6 mm. There is presacral edema. Bones: Diffusely demineralized. Bilateral hip prostheses are in anatomic position without associated fracture or lucency to suggest loosening. Grade 1 anterolisthesis of L3 on L4 and of L4 on L5. There is a left pars defect at L3. No compression fractures. Soft tissues: Diffuse subcutaneous edema. There are surgical clips on the right and left sides of the the anterior abdominal wall. No evidence of hernia. IMPRESSION: 1. Small right pleural effusion and small abdominal pelvic ascites. Diffuse subcutaneous edema. 2. Cardiomegaly and intrahepatic vein dilatation suggestive of right heart failure. 3. No evidence for bowel obstruction or inflammation. 4. Low attenuating splenic lesion has no distinction features on this unenhanced CT. Recommend further characterization with contrast-enhanced CT. 5. Cholecystectomy. Signed by: Dr. Kyle Sesay MD on 06/13/2019 5:59 PM
[2019-06-13] MEDS ORDERED: SODIUM CHLORIDE 0.9% 1000ML 1,000 ML IV SCH (18:15)
[2019-06-13] MEDS ORDERED: DEXTROSE 50% SYRINGE 50 ML IV PRN (18:15)
[2019-06-13] MEDS ORDERED: ONDANSETRON HCL INJ 2MG/ML 2ML 2 MG/ML VIAL IV PRN (18:15)
--- OUTSIDE RECORDS SUMMARY | 2019-06-13 18:32 | XMS REPORT | Summary of Care ---
Author Author [facility] Address Unknown Phone Unavailable Encounter HQ Encntr_alias(FIN) [id number] Date(s): 10/07/14 - 10/07/14 [facility] [place] [id number] [place] [address], [address] [place], [place] [address] [phone] Discharge Disposition: Home Attending Physician: TuesdayMaida MD Vital Signs No data available for this section Problem List No data available for this section Allergies, Adverse Reactions, Alerts Substance Reaction Severity Status cortisone Active IODINE Active quinidine Active Medications No data available for this section Results No data available for this section Immunizations No data available for this section Procedures No data available for this section Social History No data available for this section Assessment and Plan No data available for this section
--- OUTSIDE RECORDS SUMMARY | 2019-06-13 18:32 | XMS REPORT | Summary of Care ---
Author Author [facility] Outpatient Imaging - [facility] Address Unknown Phone Unavailable Encounter HQ Encntr_aliani(FIN) [id number] Date(s): 10/10/14 - 10/10/14 [facility] Outpatient Imaging [facility] [address] [place] [address], [address] [place], [place] [address] [phone] Discharge Disposition: Home Attending Physician: TuesdayMaida MD [...]
--- OUTSIDE RECORDS SUMMARY | 2019-06-13 18:32 | XMS REPORT | CCD ---
Author Author [facility] [facility] Address Unknown Phone Unavailable Care Team Providers Care Industrial Truck Operator Name Role Phone Cedric Haile RP Allergies, Adverse Reactions, Alerts Substance Reaction Status cortisone Active IODINE Active quinidine Active
--- OUTSIDE RECORDS SUMMARY | 2019-06-13 18:32 | XMS REPORT | CCD ---
Author Author [facility] [employer] [facility] Address Unknown Phone Unavailable Care Team Providers Care Race Relations Professor Name Role Phone Cedric Haile RP Allergies, Adverse Reactions, Alerts Substance Reaction Status cortisone Active IODINE Active quinidine Active
--- OUTSIDE RECORDS SUMMARY | 2019-06-13 18:32 | XMS REPORT | Summary of Care ---
Author Author [facility] Organization [facility] Address Unknown Phone Unavailable Encounter HQ Encntr_alias(FIN) [id number] Date(s): 03/17/17 - 03/17/[address] [phone] Attending Physician: Felipe Wilkerson MD Referring Physician: Felipe Wilkerson MD Vital Signs No data available for this section Problem List No data available for this section Allergies, Adverse Reactions, Alerts Substance Reaction Severity Status IODINE Active quinidine Active cortisone Active Medications No data available for this section Results No data available for this section Immunizations No data available for this section Procedures No data available for this section Social History No data available for this section Assessment and Plan No data available for this section
--- OUTSIDE RECORDS SUMMARY | 2019-06-13 18:32 | XMS REPORT | Continuity of Care Document ---
Author Author [employer] Organization [facility] Address Unknown Phone Unavailable Care Team Providers Care Fish Receiver Name Role Phone [facility] [employer] Unavailable Un available Problems Problem Status Onset Date Classification Date Reported Comments Source LEFT WRIST AND ARM Active 09/04/[address] [facility] [place] LEG BLISTER Active 02/11/2017 [facility] LUNG NODULE Active 04/03/2012 [facility] BACK PAIN Active 02/08/[address] [facility] [place] PULMONARY NODULE Active 11/26/2011 [facility] OTHER LUNG DISEASE NEC Active [facility] NONDISP FX OF HEAD OF LEFT RADIUS, INIT Active [facility] [place] STIFFNESS OF LEFT ELBOW, NOT ELSEWHERE C Active [facility] [place] PAIN IN LEFT ELBOW Active [facility] [place] Medications No Data Provided for This Section Allergies, Adverse Reactions, Alerts Substance Category Reaction Severity Reaction type Status Date Reported Comments Source cortisone Assertion Drug allergy Active [facility] IODINE Assertion Drug allergy Active [facility] quinidine Assertion Drug allergy Active [facility] Immunizations No Data Provided for This Section Results No Data Provided for This Section Pathology Reports No Data Provided for This Section Diagnostic Reports Report Value Date Source Spine thoracic wo contrast CT EXAM: CT thoracic spine without contrast. DATE: 10/10/2014 INDICATION: Subarachnoid hemorrhage. COMPARISON: CT chest 04/05/2012. TECHNIQUE: Examination was performed in a helical scanner without contrast material administration. Sagittal and coronal reformations were performed. DISCUSSION: The height and the structure of the thoracic vertebral bodies are well- maintained. No fracture or dislocation. No lytic or blastic lesions. No spinal canal stenosis. Limited evaluation of the contents of the spinal canal by this imaging modality. No paraspinal masses. No foraminal narrowing. Pacemaker in place. Stable ground glass nodule with partial cavitation in the left lower lung zone since prior exam. IMPRESSION: Unremarkable CT thoracic spine. Stable left lower lung zone pulmonary nodule since exam from 201210/10/2014 [facility] Brain wo contrast CT EXAM: CT BRAIN WITHOUT CONTRAST. DATE: Oct 07, 2014 01:49:00 PM INDICATION: 430 Subarachnoid Hemorrhage COMPARISON: CT brain September 30, 2007 TECHNIQUE: [address]- axial images of the brain were obtained from the skull base to the vertex without IV contrast. Coronal and sagittal reformatted images are provided. FINDINGS: No acute intracranial hemorrhage or mass effect. The davila-white interfaces are preserved. Hypodensities in the periventricular white matter may represent mild chronic microangiopathic changes. Mild generalized cerebral volume loss with compensatory enlargement of ventricles and sulci. No hydrocephalus. The basal cisterns are patent. Postoperative changes in the right frontal calvarium the prior craniotomy and anna hole. The previously seen fluid level in left maxillary sinus has resolved. IMPRESSION: No acute intracranial abnormality. 10/07/2014 [facility] Consultation Notes No Data Provided for This Section Discharge Summaries No Data Provided for This Section History and Physicals No Data Provided for This Section Vital Signs No Data Provided for This Section Encounters Location Location Details Encounter Type Encounter Number Reason For Visit Attending Provider ADM Date DC Date Status Source [facility] [id number] PULMONARY NODULE SARBJIT DICK 11/29/2011 [facility] [id number] LUNG NODULE SARBJIT DICK 04/05/2012 [facility] [id number] BACK PAIN KASEY BARNES-KAUSHIK 05/09/2012 Active [facility] [place] [facility] [place] [facility] [id number] Tuesday10/07/2014 10/08/2014 [facility] [place] [facility] [id number] Tuesday10/10/2014 10/11/2014 [facility] [id number] Felipe Wilkerson 03/17/2017 03/17/2017 [facility] Procedures No Data Provided for This Section Assessment and Plan No Data Provided for This Section Plan of Care No Data Provided for This Section Social History Social History Date Source No data available for this section 03/17/2017 [facility] No data available for this section 10/11/2014 [facility] Family History No Data Provided for This Section Advance Directives No Data Provided for This Section Functional Status No Data Provided for This Section
--- OUTSIDE RECORDS SUMMARY | 2019-06-13 18:32 | XMS REPORT | CCD ---
Author Author [facility] [facility] Address Unknown Phone Unavailable Care Team Providers Care Customer Quality Specialist Name Role Phone Nohemi Craven CP Allergies, Adverse Reactions, Alerts Substance Reaction Status cortisone Active IODINE Active quinidine Active
[2019-06-13] MEDS ORDERED: SODIUM CHLORIDE 0.9% 1000ML 500 ML IV ONE (20:00)
[2019-06-13] MEDS ORDERED: SODIUM CHLORIDE 0.9% 500ML 500 ML ONE (20:04)
[2019-06-13] MEDS: INSULIN LISPRO 100 UNIT/1 ML 3ML VIAL SQ SCH (21:00)
[2019-06-13 21:09] VITALS: BP 163/71
[2019-06-13 21:30] VITALS: BP 126/55
[2019-06-13] MEDS: PANTOPRAZOLE 40 MG 10ML VIAL IV SCH (21:30)
--- NOTE | 2019-06-13 21:30 | NUR ---
patient received awake, alert, oriented x 3 to room 288 via stretcher from the emergency room. vss. no c/o pain noted at this time. admit assessment/history obtained. patient instructed to call for assistance when needed.
[2019-06-13 21:58] VITALS: BP 126/55
[2019-06-14] VITALS (8 sets, daily range): BP systolic 135–171; BP diastolic 59–79
--- NOTE | 2019-06-14 | NUR ---
patient able to ambulate to bathroom with assistance without difficulty. patient voids without difficulty.
--- NOTE | 2019-06-14 01:00 | NUR ---
second set of cardiac markers collected and taken to lab at this time.
[2019-06-14 01:41] LABS: CREATINE KINASE MB 7.5 ng/mL (0-5.0)
--- NOTE | 2019-06-14 05:59 | NUR ---
patient c/o abd pain but has no pain medication ordered. call placed to re: pain medication. waiting for return call.
[2019-06-14 06:14] LABS: BASOPHILS # (AUTO) 0.1 (0.0-0.1); BASOPHILS % 0.8 % (0.0-1.0); EOSINOPHILS # (AUTO) 0.4 (0.0-0.4); EOSINOPHILS % 3.4 % (0.0-6.0); HEMATOCRIT 30.3 % (34.2-44.1); HEMOGLOBIN 9.2 g/dL (12.0-16.0); LYMPHOCYTES # (AUTO) 1.8 (1.0-3.2); LYMPHOCYTES % 16.1 % (18.0-39.1); MEAN CORPUSCULAR HEMOGLOBIN 23.6 pg (28-32); MEAN CORPUSCULAR HGB CONC 30.4 g/dL (31-35); MEAN CORPUSCULAR VOLUME 77.7 fL (81-99); MONOCYTES # (AUTO) 1.5 (0.2-0.8); MONOCYTES % 13.6 % (4.4-11.3); NEUTROPHILS # (AUTO) 7.4 (2.1-6.9); NEUTROPHILS % 65.3 % (38.7-80.0); PLATELET COUNT 503 x10e3/uL (140-360)
[2019-06-14 06:35] LABS: ALBUMIN 4.2 g/dL (3.5-5.0); ALBUMIN/GLOBULIN RATIO 1.6 (0.8-2.0); ANION GAP 14.9 mmol/L (8-16); CALCIUM 9.2 mg/dL (8.4-10.2); CREATININE, SERUM 1.38 mg/dL (0.57-1.11); POTASSIUM 3.9 mmol/L (3.5-5.1)
--- NOTE | 2019-06-14 07:00 | NUR ---
Received bedside report. pt is sleeping, no s/s of distress. call light within reach and bed safety in place.
[2019-06-14 07:04] LABS: CREATINE KINASE MB 7.9 ng/mL (0-5.0)
[2019-06-14] MEDS: INSULIN LISPRO 100 UNIT/1 ML 3ML VIAL SQ SCH ×4 (07:30→20:24)
[2019-06-14] MEDS: PANTOPRAZOLE 40 MG 10ML VIAL IV SCH ×2 (09:30→20:19)
[2019-06-14 09:49] LABS: EOSINOPHILS % (MANUAL) 4 % (0-7); LYMPHOCYTES % (MANUAL) 20 % (19-48); MONOCYTES % (MANUAL) 6 % (3.4-9.0); NEUTROPHILS % (MANUAL) 70 % (40-74)
[2019-06-14 09:50] LABS: ANISOCYTOSIS SLIGHT; POLYCHROMASIA FEW
[2019-06-14 09:51] LABS: ELLIPTOCYTE, RBC SLIGHT; OVALOCYTES FEW; PLATELET ESTIMATE SLIGHTLY INCREASED; PLATELET MORPHOLOGY COMMENT RARE EDTA CLUMPING; RBC MORPHOLOGY COMMENT ABNORMAL
[2019-06-14 09:52] LABS: MICROCYTOSIS SLIGHT
[2019-06-14] MEDS ORDERED: BISACODYL 10 MG SUPP PR PRN (10:15)
[2019-06-14] MEDS ORDERED: MAGNESIUM HYDROXIDE 30 ML UDC PO PRN (10:15)
[2019-06-14] MEDS ORDERED: MAGNESIUM HYDROXIDE 30 ML UDC PO ONE (10:57)
[2019-06-14] MEDS ORDERED: FUROSEMIDE INJ 10 MG/ML 4 ML VIAL IV ONE (10:57)
[2019-06-14] MEDS: SENNOSIDES 8.6 MG TAB PO SCH ×2 (11:36→17:32)
[2019-06-14] MEDS: DILTIAZEM HCL ER 120 MG CAP PO SCH (11:36)
[2019-06-14] MEDS: CLONIDINE HCL 0.1 MG TAB PO SCH ×3 (11:36→20:19)
--- NOTE | 2019-06-14 15:07 | NUR ---
spoke with Ila (daughter) and was informed that the patient had an EGD at [facility]; hiatal hernia and inflammation. the patient goes to [facility] for history of breast cancer and daughter stated that recent imaging showed nodules in the lungs. The daughter also informed RN that the patient has had chronic constipation, she was prescribed Linzess, but could not afford the medication so she does not take it.
[2019-06-14] MEDS ORDERED: ONDANSETRON HCL 4 MG ORAL DISINTEGRATING TAB PO PRN (15:15)
[2019-06-14] MEDS: BISACODYL 10 MG SUPP PR ONE ×2 (15:33→18:29)
[2019-06-14] MEDS ORDERED: CARISOPRODOL 350 MG TAB PO SCH (17:00)
--- NOTE | 2019-06-14 19:03 | NUR ---
patient received awake, alert, lying quietly in bed. no c/o pain noted. pm assessment complete. call gross placed within reach. patient instructed to call for assistance when needed.
[2019-06-14] MEDS: CARISOPRODOL 350 MG TAB PO SCH (20:19)
[2019-06-14] MEDS: SIMVASTATIN 20 MG TAB PO SCH (20:19)
[2019-06-15] VITALS (8 sets, daily range): BP systolic 122–163; BP diastolic 68–92
[2019-06-15 06:14] LABS: BASOPHILS # (AUTO) 0.1 (0.0-0.1); BASOPHILS % 0.7 % (0.0-1.0); EOSINOPHILS # (AUTO) 0.3 (0.0-0.4); EOSINOPHILS % 2.9 % (0.0-6.0); HEMATOCRIT 27.4 % (34.2-44.1); HEMOGLOBIN 8.3 g/dL (12.0-16.0); LYMPHOCYTES # (AUTO) 1.4 (1.0-3.2); LYMPHOCYTES % 15.5 % (18.0-39.1); MEAN CORPUSCULAR HEMOGLOBIN 23.7 pg (28-32); MEAN CORPUSCULAR HGB CONC 30.3 g/dL (31-35); MEAN CORPUSCULAR VOLUME 78.3 fL (81-99); MONOCYTES # (AUTO) 1.5 (0.2-0.8); MONOCYTES % 16.4 % (4.4-11.3); NEUTROPHILS # (AUTO) 5.8 (2.1-6.9); PLATELET COUNT 446 x10e3/uL (140-360); RED CELL DISTRIBUTION WIDTH 18.1 % (11.7-14.4)
[2019-06-15 06:32] LABS: ANION GAP 13.1 mmol/L (8-16); CALCIUM 9.2 mg/dL (8.4-10.2); CREATININE, SERUM 0.94 mg/dL (0.57-1.11); POTASSIUM 3.1 mmol/L (3.5-5.1)
[2019-06-15] MEDS: INSULIN LISPRO 100 UNIT/1 ML 3ML VIAL SQ SCH ×4 (07:30→21:00)
[2019-06-15] MEDS: PANTOPRAZOLE 40 MG 10ML VIAL IV SCH ×2 (08:53→21:15)
[2019-06-15] MEDS: DILTIAZEM HCL ER 120 MG CAP PO SCH (08:53)
[2019-06-15] MEDS: APIXABAN 5 MG TABLET PEG SCH (08:53)
[2019-06-15] MEDS: CLONIDINE HCL 0.1 MG TAB PO SCH ×3 (08:54→21:15)
[2019-06-15] MEDS: CITALOPRAM HYDROBROMIDE 20 MG TAB PO SCH (08:54)
[2019-06-15] MEDS: CARISOPRODOL 350 MG TAB PO SCH ×2 (08:55→21:15)
[2019-06-15] MEDS: SENNOSIDES 8.6 MG TAB PO SCH ×2 (08:55→17:41)
[2019-06-15] MEDS: METOPROLOL SUCCINATE 50 MG TAB XL PO SCH (08:55)
[2019-06-15] MEDS: ESCITALOPRAM OXALATE 10 MG TAB PO SCH (08:55)
[2019-06-15] MEDS: LOSARTAN POTASSIUM 100 MG TAB PO SCH (08:55)
[2019-06-15] MEDS: POTASSIUM CHLORIDE 20 MEQ TAB CR PO SCH (08:55)
[2019-06-15] MEDS ORDERED: PEG (High)/E-LYTE SOLN 4,000 ML BTL PO ONE (10:45)
[2019-06-15] MEDS ORDERED: POTASSIUM CHLORIDE 10MEQ EA PO ONE (10:45)
[2019-06-15] MEDS: HYDROCODONE/APAP 7.5MG-325MG 1 EA TAB PO PRN ×2 (13:55→21:24)
--- NOTE | 2019-06-15 18:06 | NUR ---
patient resting in bed, Alert with no distress, Dr Malik Mendez had rounds
[2019-06-15] MEDS: SIMVASTATIN 20 MG TAB PO SCH (21:15)
[2019-06-16] VITALS (7 sets, daily range): BP systolic 129–178; BP diastolic 63–79
[2019-06-16] MEDS: CLONIDINE HCL 0.1 MG TAB PO SCH ×3 (05:22→20:44)
[2019-06-16 07:27] LABS: ANION GAP 14.4 mmol/L (8-16); CALCIUM 8.5 mg/dL (8.4-10.2); CREATININE, SERUM 1.16 mg/dL (0.57-1.11); POTASSIUM 3.4 mmol/L (3.5-5.1)
[2019-06-16] MEDS: INSULIN LISPRO 100 UNIT/1 ML 3ML VIAL SQ SCH ×4 (07:30→21:00)
[2019-06-16] MEDS ORDERED: POTASSIUM CHLORIDE 10MEQ EA PO ONE (09:00)
--- NOTE | 2019-06-16 09:20 | NUR ---
Spoke with Dr. Mendez related to possible colonoscopy. He states there will be no procedure today.
[2019-06-16] MEDS: CITALOPRAM HYDROBROMIDE 20 MG TAB PO SCH (09:23)
[2019-06-16] MEDS: APIXABAN 5 MG TABLET PEG SCH (09:23)
[2019-06-16] MEDS: DILTIAZEM HCL ER 120 MG CAP PO SCH (09:23)
[2019-06-16] MEDS: PANTOPRAZOLE 40 MG 10ML VIAL IV SCH ×2 (09:23→20:43)
[2019-06-16] MEDS: SENNOSIDES 8.6 MG TAB PO SCH ×2 (09:24→16:57)
[2019-06-16] MEDS: ESCITALOPRAM OXALATE 10 MG TAB PO SCH (09:24)
[2019-06-16] MEDS: LOSARTAN POTASSIUM 100 MG TAB PO SCH (09:24)
[2019-06-16] MEDS: POTASSIUM CHLORIDE 20 MEQ TAB CR PO SCH (09:24)
[2019-06-16] MEDS: CARISOPRODOL 350 MG TAB PO SCH ×2 (09:25→20:44)
[2019-06-16] MEDS: METOPROLOL SUCCINATE 50 MG TAB XL PO SCH (16:58)
[2019-06-16] MEDS: CITRATE OF MAGNESIA 300ML BOTTLE PO SCH (16:58)
[2019-06-16] MEDS: HYDROCODONE/APAP 7.5MG-325MG 1 EA TAB PO PRN (20:07)
[2019-06-16] MEDS: SIMVASTATIN 20 MG TAB PO SCH (20:43)
[2019-06-17] VITALS (8 sets, daily range): BP systolic 127–156; BP diastolic 64–82
[2019-06-17] MEDS: INSULIN LISPRO 100 UNIT/1 ML 3ML VIAL SQ SCH ×4 (07:30→20:31)
[2019-06-17] MEDS: HYDROCODONE/APAP 7.5MG-325MG 1 EA TAB PO PRN (07:35)
[2019-06-17] MEDS: PANTOPRAZOLE 40 MG 10ML VIAL IV SCH ×2 (08:43→20:47)
[2019-06-17] MEDS ORDERED: MAGNESIUM/ALUMINUM/SIMETHICONE 30 ML UDC PO PRN (08:45)
[2019-06-17] MEDS: DILTIAZEM HCL ER 120 MG CAP PO SCH (08:45)
[2019-06-17] MEDS: CITRATE OF MAGNESIA 300ML BOTTLE PO SCH (08:45)
[2019-06-17] MEDS: CITALOPRAM HYDROBROMIDE 20 MG TAB PO SCH (08:45)
[2019-06-17] MEDS: CLONIDINE HCL 0.1 MG TAB PO SCH ×3 (08:45→20:48)
[2019-06-17] MEDS: SENNOSIDES 8.6 MG TAB PO SCH ×2 (08:46→16:51)
[2019-06-17] MEDS: POTASSIUM CHLORIDE 20 MEQ TAB CR PO SCH (08:46)
[2019-06-17] MEDS: CARISOPRODOL 350 MG TAB PO SCH ×2 (08:46→20:48)
[2019-06-17] MEDS: LOSARTAN POTASSIUM 100 MG TAB PO SCH (08:46)
[2019-06-17] MEDS: ESCITALOPRAM OXALATE 10 MG TAB PO SCH (08:46)
[2019-06-17] MEDS: METOPROLOL SUCCINATE 50 MG TAB XL PO SCH (09:00)
[2019-06-17] MEDS: SIMVASTATIN 20 MG TAB PO SCH (20:48)
[2019-06-18] VITALS (7 sets, daily range): BP systolic 99–168; BP diastolic 56–76
[2019-06-18] MEDS: INSULIN LISPRO 100 UNIT/1 ML 3ML VIAL SQ SCH ×4 (07:30→21:00)
[2019-06-18] MEDS: HYDROCODONE/APAP 7.5MG-325MG 1 EA TAB PO PRN ×2 (07:45→19:16)
--- NOTE | 2019-06-18 07:45 | NUR ---
RECD PT UP INBED ,C/O PAIN LEVEL 5 MEDICATED.
[2019-06-18] MEDS: PANTOPRAZOLE 40 MG 10ML VIAL IV SCH ×2 (08:30→22:42)
[2019-06-18] MEDS: DILTIAZEM HCL ER 120 MG CAP PO SCH (08:37)
[2019-06-18] MEDS: CLONIDINE HCL 0.1 MG TAB PO SCH ×3 (08:37→22:42)
[2019-06-18] MEDS: METOPROLOL SUCCINATE 50 MG TAB XL PO SCH (08:37)
[2019-06-18] MEDS: CITRATE OF MAGNESIA 300ML BOTTLE PO SCH (08:37)
[2019-06-18] MEDS: SENNOSIDES 8.6 MG TAB PO SCH ×2 (09:00→17:00)
[2019-06-18] MEDS: CARISOPRODOL 350 MG TAB PO SCH ×2 (09:00→22:42)
[2019-06-18] MEDS ORDERED: SODIUM CHLORIDE 0.9% 500ML 500 ML IV ONE (12:15)
--- NOTE | 2019-06-18 12:15 | NUR ---
PT TRANSPORTED TO ENDO VIA BED
[2019-06-18] MEDS ORDERED: SIMETHICONE 40 MG/0.6 ML BTL ONE (13:26)
[2019-06-18] MEDS: CITALOPRAM HYDROBROMIDE 20 MG TAB PO SCH (17:26)
--- NOTE | 2019-06-18 17:26 | NUR ---
PT RETURNED TO ROOM ,VIA BED,DENIES PAIN ,NO DISTRESS NOTED.
[2019-06-18] MEDS: LOSARTAN POTASSIUM 100 MG TAB PO SCH (17:27)
[2019-06-18] MEDS: POTASSIUM CHLORIDE 20 MEQ TAB CR PO SCH (17:28)
[2019-06-18] MEDS: ESCITALOPRAM OXALATE 10 MG TAB PO SCH (17:28)
[2019-06-18] MEDS ORDERED: LIDOCAINE HCL 2% LOCAL INJ 5 ML SDV VIAL INJ ONE (19:34)
[2019-06-18] MEDS ORDERED: PROPOFOL IV EMULSION 10 MG/ML 20 ML VIAL ONE (19:34)
[2019-06-18] MEDS: SIMVASTATIN 20 MG TAB PO SCH (22:42)
[2019-06-19 01:22] VITALS: BP 155/76
[2019-06-19] MEDS: HYDROCODONE/APAP 7.5MG-325MG 1 EA TAB PO PRN (01:47)
[2019-06-19 04:45] VITALS: BP 167/82
[2019-06-19 07:43] VITALS: BP 165/78
[2019-06-19 07:44] VITALS: BP 165/78
[2019-06-19] MEDS: DILTIAZEM HCL ER 120 MG CAP PO SCH (09:08)
[2019-06-19] MEDS: PANTOPRAZOLE 40 MG 10ML VIAL IV SCH (09:08)
[2019-06-19] MEDS: ESCITALOPRAM OXALATE 10 MG TAB PO SCH (09:09)
[2019-06-19] MEDS: SENNOSIDES 8.6 MG TAB PO SCH (09:09)
[2019-06-19] MEDS: LOSARTAN POTASSIUM 100 MG TAB PO SCH (09:09)
[2019-06-19] MEDS: CLONIDINE HCL 0.1 MG TAB PO SCH (09:09)
[2019-06-19] MEDS: CARISOPRODOL 350 MG TAB PO SCH (09:09)
[2019-06-19] MEDS: POTASSIUM CHLORIDE 20 MEQ TAB CR PO SCH (09:09)
[2019-06-19] MEDS: CITALOPRAM HYDROBROMIDE 20 MG TAB PO SCH (09:09)
[2019-06-19] MEDS: METOPROLOL SUCCINATE 50 MG TAB XL PO SCH (09:10)
[2019-06-19] MEDS ORDERED: OMEPRAZOLE40 MG PO (09:27)
[2019-06-19] MEDS ORDERED: SENNA LAXATIVE8.6 MG PO (09:27)
[2019-06-19] MEDS ORDERED: MILK OF MA2400 MG/10 PO (09:28)
--- NOTE | 2019-06-19 09:43 | NUR ---
Pt. expressed no spiritual or emotional concerns at this time. Provided hospitality and information n how to reach farm contractor buyer, if needed. No need to follow at this time. MESSI ALICIA Diving Supervisor Spiritual Care Department O: [phone]
--- NOTE | 2019-06-19 10:15 | NUR ---
pt discharged home,iv dcd without redness or swelling,prescriptions and instructions given copy on chart.transported to auto via w/c
[2019-06-19] MEDS ORDERED: PANTOPRAZOLE SOD 40 MG TABEC PO SCH (21:00)
--- NOTE | 2019-06-20 01:07 | Discharge Summary ---
PRIMARY CARE PHYSICIAN: Nohemi Craven MD. REAGENT TENDER HELPER: Tima Mendez MD. FINAL DIAGNOSES: 1. Qatuimgs-za-kqqmsp constipation all the way up to the right colon and ascending colon area associated with right-sided abdominal pain, status post cleaning out and a good significant bowel movement. 2. Feetj-gd-ugshitu diastolic dysfunction. 3. Congestive heart failure with fluid overload, resolved. 4. Slight dehydration, resolved. SUMMARY: The patient is an 89-year-old female with constipation, came in with right-sided abdominal pain. CT scan show significant stool burden. The patient did receive milk of magnesia and subsequently, GoLYTELY for bowel prep. She underwent both upper and lower endoscopy done by Dr. Tima Mendez and finding the colon was clean, normal, and then the EGD showed gastritis. The patient is otherwise stable. She is feeling much better. The patient will discharge home with the following instructions: 1. Resume home medication. 2. High-fiber diet. 3. Senna S one tablet twice a day. 4. Milk of magnesia 30 mL twice a day as needed for constipation. The patient is otherwise stable. Discharge the patient today. Follow up with Dr. Craven for medication reconciliation. MD HAILY Hawkins/ALEX /[id number]
== END 2019-06-19 10:14 | disposition home or self-care (01) | DRG 292 ==
LOC: ER 14:49 → ERHOLD 18:16 → MED/SURG3 20:53 → OBSVTOIN 06-14 10:40
PROVIDERS: ADMIT Internal Medicine; ATTEND Internal Medicine
PROC: 0DJD8ZZ Inspection of Lower Intestinal Tract, Via Natural or Artificial Opening Endoscopic (ICD-10-PCS; principal; 2019-06-18 11:30)
PROC: 0DB68ZX Excision of Stomach, Via Natural or Artificial Opening Endoscopic, Diagnostic (ICD-10-PCS; 2019-06-18 11:30)
DX: I11.0 Hypertensive heart disease with heart failure (principal); N17.9 Acute kidney failure, unspecified; I50.33 Acute on chronic diastolic (congestive) heart failure; I48.91 Unspecified atrial fibrillation; K59.00 Constipation, unspecified; F41.9 Anxiety disorder, unspecified; D64.9 Anemia, unspecified; E86.0 Dehydration; K29.70 Gastritis, unspecified, without bleeding; Z85.3 Personal history of malignant neoplasm of breast; Z95.0 Presence of cardiac pacemaker; Z83.3 Family history of diabetes mellitus; Z88.2 Allergy status to sulfonamides; Z90.49 Acquired absence of other specified parts of digestive tract; Z90.710 Acquired absence of both cervix and uterus; Z90.10 Acquired absence of unspecified breast and nipple; Z82.49 Family history of ischemic heart disease and other diseases of the circulatory system
CPT/HCPCS: 36415; 43239; 45378; 71045; 74176; 80048; 80053; 81001; 82150; 82550; 82553; 82948; 83690; 83735; 83880; 84484; 85025; 85610; 85730; 87086; 87635; 88305; 88312; 93005; 93306; 99284; G0378; J1940; J2001; J2270; J2405; J7030; J7040

== ENCOUNTER 2019-10-26 18:26 | Emergency (ER) | payer MEDICARE, BC ==
[~2019-10-26] VITALS: Ht 167.6 cm; Wt 83.5 kg
[~2019-10-26 18:26] MED LIST changes: +CITALOPRAM HBR20 MG PO; +DILTIAZEM 24HR120 M1 PO; +ELIQUIS5 M1 PEG; +MILK OF MA2400 MG/10 PO; +OMEPRAZOLE40 MG PO; +POTASSIUM CHLO20 ME1 PO; +PRAVACHOL20 MG PO; +SENNA LAXATIVE8.6 MG PO
--- NOTE | 2019-10-26 19:42 | Emergency Department Note ---
History of Present Illnes History of Present Illness Chief Complaint: General Medicine Complaints History of Present Illness This is a 89 year old female with complaints of head pain after falling in her bathroom and hitting her head. Patient states she was in a hurry and tripped and fell and hit her head on the bathroom counter. Patient denies LOC but does say she was "dazed" after it happened. Patient is alert and oriented in triage and able to recall the whole event. . Historian: Patient Arrival Mode: Car Onset (how long ago): hour(s) (1) Location: head, right knee Quality: pain Radiation: Reports non-radiation Severity: moderate Onset quality: sudden Duration (how long): hour(s) (1) Timing of current episode: constant Progression: unchanged Chronicity: new Context: Reports trauma/injury (as above) Relieving factors: none Exacerbating factors: none Associated symptoms: Reports denies other symptoms Past Medical/Family History Physician Review I have reviewed the patient's past medical and family history. Any updates have been documented here. Past Medical History Recent Fever: No Clinical Suspicion of Infectio: No New/Unexplained Change in Ment: No Past Medical History: Hypertension, Diabetes, A-Fib, Cancer, Anxiety, Hyperlipedemia, Chronic Back Pain Other Medical History: BREAST CANCER Past Surgical History: Cholecysctectomy, Hysterectomy, Pacer/AICD, Hip Replacement, Knee Replacement, Back Surgery Other Surgery: PACEMAKER LEFT MASTECTOMY BRAIN SURGERY HEMRROIDECTOMY Social History Smoking Cessation: Never Smoker Counseling Performed: No Alcohol Use: None Any Illegal Drug Use: No Physically hurt or threatened: No Other Last Tetanus: UNKNOWN Any Pre-Existing Lines (PICC,: No Review of Systems Review of Systems Constitutional: Reports no symptoms EENTM: Reports no symptoms Cardiovascular: Reports no symptoms Respiratory: Reports no symptoms Gastrointestinal: Reports no symptoms Genitourinary: Reports no symptoms Musculoskeletal: Reports as per HPI Integumentary: Reports no symptoms Neurological: Reports no symptoms Psychological: Reports no symptoms Endocrine: Reports no symptoms Hematological/Lymphatic: Reports no symptoms Physical Exam Related Data Allergies: Coded Allergies: No Known Allergies (Unverified , 10/26/19) Triage Vital Signs Vital Signs Date Time Temp Pulse Resp B/P (MAP) Pulse Ox O2 Delivery O2 Flow Rate FiO2 10/26/19 18:39 97.5 84 14 152/79 100 Room Air Vital signs reviewed: Yes Physical Exam CONSTITUTIONAL Constitutional: Present well-developed, Present well-nourished; Absent distressed HENT HENT: Present normocephalic, Present oropharynx clear/moist, Present nose normal, Present other (contusion to left posterior scalp) HENT L/R: Present left ext ear normal, Present right ext ear normal EYES Eyes: Reports PERRL, Reports conjunctivae normal NECK Neck: Present ROM normal PULMONARY Pulmonary: Present effort normal, Present breath sounds normal CARDIOVASCULAR Cardiovascular: Present regular rhythm, Present heart sounds normal, Present capillary refill normal, Present normal rate GASTROINTESTINAL Abdominal: Present soft, Present nontender, Present bowel sounds normal GENITOURINARY Genitourinary: Present exam deferred SKIN Skin: Present warm, Present dry MUSCULOSKELETAL Musculoskeletal: Present ROM normal, Present other (abrasion right knee, mild pain with rom of right knee) NEUROLOGICAL Neurological: Present alert, Present oriented x 3, Present no gross motor or sensory deficits PSYCHOLOGICAL Psychological: Present mood/affect normal, Present judgement normal Results Imaging Imaging results reviewed: Yes Impressions Procedure: [id number] CT/CT CERVICAL SPINE WO Exam Date: 10/26/19 Exam Time: 1953 REPORT STATUS: Signed History: Trauma Comparison studies: None Technique: Axial images were obtained through the cervical region.. Coronal and sagittal images reconstructed from the axial data. Dose modulation, iterative reconstruction, and/or weight based adjustment of the mA/kV was utilized to reduce the radiation dose to as low as reasonably achievable. Intravenous contrast: None Findings: Soft tissues: No gross abnormalities. Atlantoaxial articulation: Intact. Alignment: Straightening of the usual lordosis is probably positional. No scoliosis. Cervicomedullary junction: No abnormalities. The foramen magnum is patent. Vertebrae: Bones mildly demineralized No fractures, infection or neoplasm. Degenerative changes: Moderate at the atlantoaxial articulation. Mildly degenerated disc at C4-5, moderate at C5-6, mild at C6-7. Facet arthrosis throughout the cervical region, worse at C3-4 and C4-5. Moderate spinal canal stenosis at C5-6 due to disc osteophyte complex. Foraminal stenosis, moderate right at C4-5, bilaterally at C5-6 due to facet and uncoarthrosis. IMPRESSION: 1. No acute abnormalities. 2. Specifically, no fractures or subluxations. 3. Cannot adequately evaluate for ligament, spinal cord and or vascular abnormalities. 4. Degenerative spinal canal and foraminal stenosis as described Signed by: Dr. Marcel Lozano M.D. on 10/26/2019 8:13 PM Dictated By: MARCEL LOZANO MD, MD 12 Transcribed By: ИИРНА on 10/26/192012 COPY TO: BRANDON CALLEJAS MD~ Procedure: [id number] CT/CT BRAIN WO Exam Date: 10/26/19 Exam Time: 1953 REPORT STATUS: Signed History:Fall Comparison studies: None Technique: Axial images were obtained from the skull base to the vertex. Coronal and sagittal images reconstructed from the axial data. Dose modulation, iterative reconstruction, and/or weight based adjustment of the mA/kV was utilized to reduce the radiation dose to as low as reasonably achievable. Intravenous contrast: None Findings: Scalp/skull: Old right frontal craniotomy. Otherwise, no abnormalities. Extra-axial spaces: No masses. No fluid collections. Brain sulci: Mildly prominent. Ventricles: Mild compensatory dilatation. No hydrocephalus. Parenchyma: Subtle hypodensities in the supratentorial white matter are small vessel ischemic changes. No masses, hemorrhage, acute or chronic cortical vascular insults. Sellar/suprasellar region: No abnormalities. Craniocervical junction: Patent foramen magnum. No Chiari one malformation. Incidental findings: Subtle calcifications in the carotid siphons . Impression: No acute intracranial abnormalities. Chronic findings: 1. Right frontal craniotomy. 2. Mild generalized volume loss. 3. Mild supratentorial white matter small vessel ischemic changes. Signed by: Dr. Marcel Lozano M.D. on 10/26/2019 8:09 PM Dictated By: MARCEL LOZANO MD, MD 08 Transcribed By: ИРИНА on 10/26/192008 COPY TO: BRANDON CALLEJAS MD~ Exam: Right Knee Series. History: Status post fall Comparison: None. Findings: 3 views of the right knee. There is decreased bone mineralization, which limits evaluation of bony structures. Status post right total hip replacement, with intact hardware. No evidence of loosening. No acute, displaced fracture or dislocation. No abnormal soft tissue calcification or mass. No effusions or soft tissue swelling. Impression: 1. Status post total knee replacement, without acute abnormalities. Signed by: Dr. Mary Jo Starr M.D. on 10/26/2019 8:28 PM Dictated By: MARY JO STARR MD 27 Transcribed By: ИРИНА on 10/26/192027 COPY TO: BRANDON CALLEJAS MD~ Assessment & Plan Medical Decision Making MDM pt s/p fall hitting head and right knee ct brain, ct c spine, right knee ordered to eval for fractures, intracranial injury Assessment & Plan Final Impression: (1) Head contusion (2) Contusion of right knee (3) Concussion Depart Disposition: HOME, SELF-CARE Last Vital Signs Date Time Temp Pulse Resp B/P (MAP) Pulse Ox O2 Delivery O2 Flow Rate FiO2 10/26/19 19:23 98.3 70 17 125/74 99 Room Air Home Meds Reported Medications Magnesium Hydroxide (MILK OF MAGNESIA) 2,400 Mg/10 Ml Oral.susp, 10 ML PO BID PRN for CONSTIPATION, ML 06/19/19 Sennosides (SENNA LAXATIVE) 8.6 Mg Tablet, 1 TAB PO BID 06/19/19 Omeprazole (OMEPRAZOLE) 40 Mg Capsule.dr, 40 MG PO DAILY 06/19/19 Citalopram Hydrobromide (CITALOPRAM HBR) 20 Mg Tablet, 20 MG PO DAILY, TAB 06/13/19 Pravastatin Sodium (PRAVACHOL) 20 Mg Tablet, 20 MG PO HS, TAB 06/13/19 Diltiazem Hcl (DILTIAZEM 24HR CD) 120 Mg Cap.er.24h, 240 MG PO DAILY 06/13/19 Potassium Chloride (POTASSIUM CHLORIDE) 20 Meq Tab.er.prt, 20 MEQ PO DAILY 06/13/19 Apixaban (Eliquis) 5 Mg Tab.ds.pk, 5 MG PEG DAILY 06/13/19 Metoprolol Succinate (METOPROLOL SUCCINATE) 100 Mg Tab.er.24h, 100 MG PO RDAILY 11/19/12 Metformin Hcl (GLUCOPHAGE) 1,000 Mg Tablet, 1000 MG PO BID 11/19/12 Losartan Potassium (LOSARTAN POTASSIUM) 50 Mg Tablet, 100 MG PO RDAILY 11/19/12 Hydrocodone Bit/Acetaminophen (LORTAB 10-500 TABLET) 1 Each Tablet, 10 - 500 MG PO RQ6H 11/19/12 Furosemide (FUROSEMIDE) 40 Mg Tablet, 80 MG PO RDAILY 11/19/12 Escitalopram Oxalate (LEXAPRO) 10 Mg Tablet, 10 MG PO RDAILY 11/19/12 Clonidine Hcl (CATAPRES) 0.1 Mg Tablet, 0.1 MG PO TID 11/19/12 Carisoprodol (CARISOPRODOL) 350 Mg Tablet, 350 MG PO BID 11/19/12 Butalb/Acetaminophen/Caffeine (ESGIC PLUS CAPSULE) 1 Each Capsule, 1 TAB PO Q 4HRS 11/19/12 BRANDON CALLEJAS MD Oct 26, 2019 19:42
[2019-10-26] MEDS ORDERED: ACETAMINOPHEN 325 MG TAB ONE (20:13)
--- NOTE | 2019-10-26 20:13 | Diagnostic Imaging Report ---
History:Fall Comparison studies: None Technique: Axial images were obtained from the skull base to the vertex. Coronal and sagittal images reconstructed from the axial data. Dose modulation, iterative reconstruction, and/or weight based adjustment of the mA/kV was utilized to reduce the radiation dose to as low as reasonably achievable. Intravenous contrast: None Findings: Scalp/skull: Old right frontal craniotomy. Otherwise, no abnormalities. Extra-axial spaces: No masses. No fluid collections. Brain sulci: Mildly prominent. Ventricles: Mild compensatory dilatation. No hydrocephalus. Parenchyma: Subtle hypodensities in the supratentorial white matter are small vessel ischemic changes. No masses, hemorrhage, acute or chronic cortical vascular insults. Sellar/suprasellar region: No abnormalities. Craniocervical junction: Patent foramen magnum. No Chiari one malformation. Incidental findings: Subtle calcifications in the carotid siphons . Impression: No acute intracranial abnormalities. Chronic findings: 1. Right frontal craniotomy. 2. Mild generalized volume loss. 3. Mild supratentorial white matter small vessel ischemic changes. Signed by: Dr. Marcel Lozano M.D. on 10/26/2019 8:09 PM
[2019-10-26] MEDS ORDERED: ACETAMINOPHEN 325 MG TAB PO ONE (20:15)
--- NOTE | 2019-10-26 20:16 | Diagnostic Imaging Report ---
History: Trauma Comparison studies: None Technique: Axial images were obtained through the cervical region.. Coronal and sagittal images reconstructed from the axial data. Dose modulation, iterative reconstruction, and/or weight based adjustment of the mA/kV was utilized to reduce the radiation dose to as low as reasonably achievable. Intravenous contrast: None Findings: Soft tissues: No gross abnormalities. Atlantoaxial articulation: Intact. Alignment: Straightening of the usual lordosis is probably positional. No scoliosis. Cervicomedullary junction: No abnormalities. The foramen magnum is patent. Vertebrae: Bones mildly demineralized No fractures, infection or neoplasm. Degenerative changes: Moderate at the atlantoaxial articulation. Mildly degenerated disc at C4-5, moderate at C5-6, mild at C6-7. Facet arthrosis throughout the cervical region, worse at C3-4 and C4-5. Moderate spinal canal stenosis at C5-6 due to disc osteophyte complex. Foraminal stenosis, moderate right at C4-5, bilaterally at C5-6 due to facet and uncoarthrosis. IMPRESSION: 1. No acute abnormalities. 2. Specifically, no fractures or subluxations. 3. Cannot adequately evaluate for ligament, spinal cord and or vascular abnormalities. 4. Degenerative spinal canal and foraminal stenosis as described Signed by: Dr. Marcel Lozano M.D. on 10/26/2019 8:13 PM
[2019-10-26] MEDS ORDERED: ONDANSETRON HCL 4 MG ORAL DISINTEGRATING TAB PO ONE (20:30)
[2019-10-26] MEDS ORDERED: TRAMADOL HCL 50 MG TAB PO ONE (20:30)
[2019-10-26] MEDS ORDERED: ONDANSETRON HCL 4 MG ORAL DISINTEGRATING TAB ONE (20:30)
--- NOTE | 2019-10-26 20:32 | Diagnostic Imaging Report ---
Exam: Right Knee Series. History: Status post fall Comparison: None. Findings: 3 views of the right knee. There is decreased bone mineralization, which limits evaluation of bony structures. Status post right total hip replacement, with intact hardware. No evidence of loosening. No acute, displaced fracture or dislocation. No abnormal soft tissue calcification or mass. No effusions or soft tissue swelling. Impression: 1. Status post total knee replacement, without acute abnormalities. Signed by: Dr. Kraig Starr M.D. on 10/26/2019 8:28 PM
[2019-10-26 21:12] VITALS: BP 159/86
== END 2019-10-26 21:20 | disposition home or self-care (01) ==
LOC: ER 18:38
DX: S06.0X0A Concussion without loss of consciousness, initial encounter (principal); S80.01XA Contusion of right knee, initial encounter; W01.198A Fall on same level from slipping, tripping and stumbling with subsequent striking against other object, initial encounter; Y92.002 Bathroom of unspecified non-institutional (private) residence as the place of occurrence of the external cause; I10 Essential (primary) hypertension; E11.9 Type 2 diabetes mellitus without complications; E78.5 Hyperlipidemia, unspecified; I48.91 Unspecified atrial fibrillation; F41.9 Anxiety disorder, unspecified; Z95.0 Presence of cardiac pacemaker; Z85.3 Personal history of malignant neoplasm of breast
CPT/HCPCS: 70450; 72125; 73562; 99284; Q0162

== ENCOUNTER → 2020-01-15 | Outpatient (CLI) | payer MEDICARE, BC ==
[~2020-01-15] MED LIST changes: +DIATRIZOATE MEGL/DIATRIZOA SOD 30 ML BTL PO ONE
== END ==
LOC: CT 13:56
PROVIDERS: ATTEND Internal Medicine Gastroenterology
DX: K59.00 Constipation, unspecified (principal); R10.13 Epigastric pain; E11.9 Type 2 diabetes mellitus without complications; I10 Essential (primary) hypertension; Z71.3 Dietary counseling and surveillance; E66.3 Overweight
CPT/HCPCS: 74176

== ENCOUNTER 2020-02-02 13:28 | Inpatient (IN) | payer MEDICARE, BC ==
[~2020-02-02] VITALS: Ht 167.6 cm; Wt 83.5 kg
[~2020-02-02 13:28] MED LIST changes: -DIATRIZOATE MEGL/DIATRIZOA SOD 30 ML BTL PO ONE
[2020-02-02] MEDS ORDERED: ASPIRIN 81 MG CHEW TAB PO ONE (14:15)
[2020-02-02 14:46] LABS: BASOPHILS # (AUTO) 0.1 (0.0-0.1); BASOPHILS % 0.9 % (0.0-1.0); EOSINOPHILS # (AUTO) 0.6 (0.0-0.4); EOSINOPHILS % 8.3 % (0.0-6.0); HEMATOCRIT 35.3 % (34.2-44.1); LYMPHOCYTES # (AUTO) 1.1 (1.0-3.2); LYMPHOCYTES % 15.8 % (18.0-39.1); MEAN CORPUSCULAR HEMOGLOBIN 29.9 pg (28-32); MEAN CORPUSCULAR HGB CONC 31.2 g/dL (31-35); MEAN CORPUSCULAR VOLUME 95.9 fL (81-99); MONOCYTES # (AUTO) 0.9 (0.2-0.8); MONOCYTES % 12.3 % (4.4-11.3); NEUTROPHILS # (AUTO) 4.3 (2.1-6.9); NEUTROPHILS % 62.4 % (38.7-80.0); PLATELET COUNT 288 x10e3/uL (140-360); RED BLOOD COUNT 3.68 x10e6/uL (3.6-5.1)
[2020-02-02 14:57] LABS: INR 1.17; PROTHROMBIN TIME 15.5 seconds (11.9-14.5)
[2020-02-02 14:58] LABS: PARTIAL THROMBOPLASTIN TIME 44.9 seconds (23.8-35.5)
[2020-02-02 15:11] LABS: ALBUMIN 3.9 g/dL (3.5-5.0); ALBUMIN/GLOBULIN RATIO 1.4 (0.8-2.0); ANION GAP 14.2 mmol/L (8-16); CREATININE, SERUM 1.02 mg/dL (0.57-1.11); POTASSIUM 4.2 mmol/L (3.5-5.1)
[2020-02-02 15:18] LABS: CREATINE KINASE MB 0.8 ng/mL (0-5.0)
[2020-02-02 15:19] LABS: CLARITY,URINE CLEAR (CLEAR); COLOR,URINE YELLOW (YELLOW)
[2020-02-02 15:20] LABS: KETONES,URINE NEGATIVE (NEGATIVE); LEUKOCYTE ESTERASE ,URINE NEGATIVE (NEGATIVE); NITRITE,URINE NEGATIVE (NEGATIVE); PROTEIN,URINE DIPSTICK NEGATIVE (NEGATIVE); URINE UROBILINOGEN 0.2 mg/dL (0.2 - 1)
[2020-02-02 15:41] LABS: BACTERIA,URINE RARE /HPF; EPITHELIAL CELLS,URINE RARE /LPF; MUCUS,URINE FEW (RARE); RBC,URINE 0-5 /HPF (0-5); WBC,URINE (MAN) 0-5 /HPF (0-5)
[2020-02-02] MEDS ORDERED: FUROSEMIDE INJ 10 MG/ML 4 ML VIAL IV ONE (17:30)
[2020-02-02] MEDS ORDERED: DEXTROSE 50% SYRINGE 50 ML IV PRN (17:45)
[2020-02-02 19:15] VITALS: BP 151/79
[2020-02-02 20:00] VITALS: BP 151/78
[2020-02-02 20:13] LABS: CREATINE KINASE MB 0.9 ng/mL (0-5.0)
[2020-02-02] MEDS: INSULIN LISPRO 100 UNIT/1 ML 3ML VIAL SQ SCH (20:20)
[2020-02-02 21:39] VITALS: BP 151/78
[2020-02-03] VITALS (8 sets, daily range): BP systolic 130–161; BP diastolic 70–88
[2020-02-03 03:50] LABS: BASOPHILS # (AUTO) 0.1 (0.0-0.1); EOSINOPHILS # (AUTO) 0.7 (0.0-0.4); EOSINOPHILS % 9.9 % (0.0-6.0); HEMATOCRIT 37.4 % (34.2-44.1); HEMOGLOBIN 11.7 g/dL (12.0-16.0); LYMPHOCYTES # (AUTO) 1.4 (1.0-3.2); LYMPHOCYTES % 20.6 % (18.0-39.1); MEAN CORPUSCULAR HGB CONC 31.3 g/dL (31-35); MEAN CORPUSCULAR VOLUME 95.9 fL (81-99); MONOCYTES # (AUTO) 0.9 (0.2-0.8); MONOCYTES % 13.3 % (4.4-11.3); NEUTROPHILS # (AUTO) 3.8 (2.1-6.9); NEUTROPHILS % 55.1 % (38.7-80.0); PLATELET COUNT 306 x10e3/uL (140-360)
[2020-02-03 04:13] LABS: ALBUMIN/GLOBULIN RATIO 1.3 (0.8-2.0); ANION GAP 17.6 mmol/L (8-16); CALCIUM 9.1 mg/dL (8.4-10.2); CHOL/HDL RATIO 2.4 (3.0-3.6); CREATININE, SERUM 0.92 mg/dL (0.57-1.11); POTASSIUM 3.6 mmol/L (3.5-5.1)
[2020-02-03] MEDS: INSULIN LISPRO 100 UNIT/1 ML 3ML VIAL SQ SCH ×4 (07:30→20:31)
[2020-02-03] MEDS: CEFAZOLIN SOD 1 GM/NS 50ML 50 ML IV SCH ×3 (09:30→21:05)
[2020-02-03] MEDS ORDERED: MAGNESIUM HYDROXIDE 30 ML UDC PO PRN (09:30)
[2020-02-03] MEDS: FUROSEMIDE INJ 10 MG/ML 4 ML VIAL IV SCH ×2 (09:30→12:00)
[2020-02-03] MEDS ORDERED: HYDRALAZINE HCL 20 MG/ML VIAL IV PRN (09:30)
[2020-02-03] MEDS ORDERED: DILTIAZEM HCL ER 120 MG CAP PO NR (09:45)
[2020-02-03] MEDS ORDERED: ONDANSETRON HCL 4 MG ORAL DISINTEGRATING TAB PO PRN (09:45)
[2020-02-03] MEDS ORDERED: SODIUM CHLORIDE 0.9% 250ML 250 ML ONE (09:57)
[2020-02-03] MEDS: APIXAB 2.5 MG TABLET PO SCH ×2 (09:58→17:00)
[2020-02-03] MEDS: PANTOPRAZOLE SOD 40 MG TABEC PO SCH (09:58)
[2020-02-03] MEDS: ACETAMIN/BUTALBITAL/CAFFEINE TAB PO PRN ×2 (10:00→19:32)
[2020-02-03] MEDS: CLONIDINE HCL 0.1 MG TAB PO SCH ×2 (15:00→20:51)
[2020-02-03] MEDS: SENNOSIDES 8.6 MG TAB PO SCH (17:00)
[2020-02-03] MEDS: PRAVASTATIN 20 MG TAB PO SCH (20:51)
[2020-02-03] MEDS ORDERED: METOPROLOL SUCCINATE 50 MG TAB XL PO SCH (21:00)
[2020-02-04] MEDS: LOSARTAN POTASSIUM 100 MG TAB PO SCH (05:23)
[2020-02-04] MEDS: CEFAZOLIN SOD 1 GM/NS 50ML 50 ML IV SCH ×3 (05:23→22:00)
[2020-02-04 06:00] LABS: MAGNESIUM 2.1 MG/DL (1.3-2.1); PHOSPHORUS 4.2 MG/DL (2.3-4.7)
[2020-02-04] MEDS ORDERED: NON-FORMULARY MEDICATION (Metoprolol Succinate 100 MG) PO SCH (06:00)
[2020-02-04 06:18] LABS: ALBUMIN/GLOBULIN RATIO 1.4 (0.8-2.0); ANION GAP 16.8 mmol/L (8-16); CALCIUM 8.9 mg/dL (8.4-10.2); POTASSIUM 3.8 mmol/L (3.5-5.1)
[2020-02-04] MEDS: INSULIN LISPRO 100 UNIT/1 ML 3ML VIAL SQ SCH ×4 (07:30→20:57)
[2020-02-04] MEDS: CARISOPRODOL 350 MG TAB PO PRN (07:38)
[2020-02-04 07:41] VITALS: BP 145/82
[2020-02-04 08:19] VITALS: BP 168/88
[2020-02-04] MEDS: PANTOPRAZOLE SOD 40 MG TABEC PO SCH (09:13)
[2020-02-04] MEDS: DILTIAZEM HCL ER 120 MG CAP PO SCH (09:13)
[2020-02-04] MEDS: SENNOSIDES 8.6 MG TAB PO SCH ×2 (09:13→16:14)
[2020-02-04] MEDS: FUROSEMIDE INJ 10 MG/ML 4 ML VIAL IV SCH ×2 (09:13→12:30)
[2020-02-04] MEDS: POTASSIUM CHLORIDE 20 MEQ TAB CR PO SCH (09:13)
[2020-02-04] MEDS: CLONIDINE HCL 0.1 MG TAB PO SCH ×3 (09:13→21:00)
[2020-02-04] MEDS: CITALOPRAM HYDROBROMIDE 20 MG TAB PO SCH (09:13)
[2020-02-04] MEDS: APIXAB 2.5 MG TABLET PO SCH ×2 (09:13→16:14)
[2020-02-04 11:39] VITALS: BP 155/81
[2020-02-04 15:43] VITALS: BP 165/68
[2020-02-04 20:00] VITALS: BP 142/72
[2020-02-04] MEDS: PRAVASTATIN 20 MG TAB PO SCH (20:57)
[2020-02-04] MEDS: LACTULOSE SYRUP 20 GM/30 ML UDC PO PRN (20:58)
[2020-02-05] VITALS (8 sets, daily range): BP systolic 139–174; BP diastolic 64–97
[2020-02-05] MEDS: CARISOPRODOL 350 MG TAB PO PRN (00:20)
[2020-02-05 05:48] LABS: ALBUMIN 3.8 g/dL (3.5-5.0); ALBUMIN/GLOBULIN RATIO 1.3 (0.8-2.0); ANION GAP 14.1 mmol/L (8-16); CALCIUM 8.8 mg/dL (8.4-10.2); CREATININE, SERUM 0.91 mg/dL (0.57-1.11); POTASSIUM 3.1 mmol/L (3.5-5.1)
[2020-02-05] MEDS: CEFAZOLIN SOD 1 GM/NS 50ML 50 ML IV SCH (06:00)
[2020-02-05] MEDS: LOSARTAN POTASSIUM 100 MG TAB PO SCH (06:00)
[2020-02-05] MEDS: INSULIN LISPRO 100 UNIT/1 ML 3ML VIAL SQ SCH ×4 (07:30→21:00)
[2020-02-05] MEDS ORDERED: POTASSIUM CHLORIDE 10MEQ EA PO ONE (08:45)
[2020-02-05] MEDS: CLINDAMYCIN 300MG 50 ML IV SCH ×3 (10:00→21:46)
[2020-02-05] MEDS: FUROSEMIDE INJ 10 MG/ML 4 ML VIAL IV SCH ×2 (10:09→14:55)
[2020-02-05] MEDS: CITALOPRAM HYDROBROMIDE 20 MG TAB PO SCH (10:10)
[2020-02-05] MEDS: CLONIDINE HCL 0.1 MG TAB PO SCH ×3 (10:10→21:52)
[2020-02-05] MEDS: DILTIAZEM HCL ER 120 MG CAP PO SCH (10:10)
[2020-02-05] MEDS: APIXAB 2.5 MG TABLET PO SCH ×2 (10:10→16:21)
[2020-02-05] MEDS: PANTOPRAZOLE SOD 40 MG TABEC PO SCH (10:11)
[2020-02-05] MEDS: SENNOSIDES 8.6 MG TAB PO SCH ×2 (10:12→16:21)
[2020-02-05] MEDS: POTASSIUM CHLORIDE 20 MEQ TAB CR PO SCH (10:26)
[2020-02-05] MEDS: LACTULOSE SYRUP 20 GM/30 ML UDC PO PRN (21:41)
[2020-02-05] MEDS: PRAVASTATIN 20 MG TAB PO SCH (21:46)
[2020-02-06] VITALS: BP 143/82
[2020-02-06 04:00] VITALS: BP 179/90
[2020-02-06] MEDS: CLINDAMYCIN 300MG 50 ML IV SCH ×2 (05:29→09:13)
[2020-02-06] MEDS: ACETAMIN/BUTALBITAL/CAFFEINE TAB PO PRN (05:36)
[2020-02-06] MEDS: LOSARTAN POTASSIUM 100 MG TAB PO SCH (06:32)
[2020-02-06 06:36] LABS: BLOOD UREA NITROGEN 11 mg/dL (7-26); BUN/CREATININE RATIO 13 (6-25); CALCIUM 9.5 mg/dL (8.4-10.2); CARBON DIOXIDE 29 mmol/L (22-29); CHLORIDE 101 mmol/L (98-107); CREATININE, SERUM 0.82 mg/dL (0.57-1.11); EST GLOMERULAR FILTRATION RATE > 60 ML/MIN (60-); GLUCOSE 101 mg/dL (74-118); SODIUM 143 mmol/L (136-145)
[2020-02-06] MEDS: INSULIN LISPRO 100 UNIT/1 ML 3ML VIAL SQ SCH ×2 (07:30→11:30)
[2020-02-06 08:35] VITALS: BP 162/82
[2020-02-06 09:03] VITALS: BP 162/82
[2020-02-06] MEDS: CLONIDINE HCL 0.1 MG TAB PO SCH (09:12)
[2020-02-06] MEDS: CITALOPRAM HYDROBROMIDE 20 MG TAB PO SCH (09:12)
[2020-02-06] MEDS: DILTIAZEM HCL ER 120 MG CAP PO SCH (09:12)
[2020-02-06] MEDS: FUROSEMIDE INJ 10 MG/ML 4 ML VIAL IV SCH (09:12)
[2020-02-06] MEDS: APIXAB 2.5 MG TABLET PO SCH (09:13)
[2020-02-06] MEDS: POTASSIUM CHLORIDE 20 MEQ TAB CR PO SCH (09:13)
[2020-02-06] MEDS: PANTOPRAZOLE SOD 40 MG TABEC PO SCH (09:13)
[2020-02-06] MEDS: SENNOSIDES 8.6 MG TAB PO SCH (09:13)
[2020-02-06] MEDS ORDERED: LASIX40 MG PO (10:31)
[2020-02-06] MEDS ORDERED: CLINDAMYCIN HC300 MG PO (10:31)
[2020-02-06] MEDS ORDERED: BACID CAPLET1 EACH PO (10:32)
[2020-02-06 12:10] VITALS: BP 160/97
[2020-02-06] MEDS ORDERED: CLINDAMYCIN HCL 150 MG CAP PO SCH (16:00)
[2020-02-06] MEDS ORDERED: FUROSEMIDE 40 MG TAB PO SCH (18:00)
== END 2020-02-06 12:00 | disposition home health service (06) | DRG 602 ==
LOC: ER 13:58 → ERHOLD 17:41 → MED/SURG2 18:59
PROVIDERS: ADMIT Internal Medicine; ATTEND Internal Medicine
DX: L03.115 Cellulitis of right lower limb (principal); I50.23 Acute on chronic systolic (congestive) heart failure; I11.0 Hypertensive heart disease with heart failure; E11.9 Type 2 diabetes mellitus without complications; I48.0 Paroxysmal atrial fibrillation; E78.5 Hyperlipidemia, unspecified; I87.2 Venous insufficiency (chronic) (peripheral); E87.8 Other disorders of electrolyte and fluid balance, not elsewhere classified; R91.8 Other nonspecific abnormal finding of lung field; Z20.828 Contact with and (suspected) exposure to other viral communicable diseases
CPT/HCPCS: 36415; 70450; 71045; 80048; 80053; 80061; 81001; 82044; 82550; 82553; 82948; 83735; 83880; 84100; 84484; 85025; 85610; 85730; 87086; 87186; 93005; 93306; 99284; J0690; J1940; J7050; Q0162; U0002

== ENCOUNTER → 2020-10-08 | Outpatient (CLI) | payer MEDICARE, BC ==
[~2020-10-08] MED LIST changes: +BACID CAPLET1 EACH PO; +CLINDAMYCIN HC300 MG PO; +LASIX40 MG PO
== END ==
LOC: RAD 11:00
PROVIDERS: ATTEND Internal Medicine Cardiovascular Disease
DX: R07.9 Chest pain, unspecified (principal); R06.02 Shortness of breath
CPT/HCPCS: 71046

== ENCOUNTER 2020-10-16 16:26 | Emergency (ER) | payer MEDICARE, BC ==
[~2020-10-16] VITALS: Ht 167.6 cm; Wt 83.5 kg
[2020-10-16 18:18] VITALS: BP 140/91
== END 2020-10-16 18:19 | disposition home or self-care (01) ==
LOC: ER 16:36
DX: S70.02XA Contusion of left hip, initial encounter (principal); S80.212A Abrasion, left knee, initial encounter; S80.211A Abrasion, right knee, initial encounter; W01.0XXA Fall on same level from slipping, tripping and stumbling without subsequent striking against object, initial encounter; Y93.01 Activity, walking, marching and hiking; Y92.008 Other place in unspecified non-institutional (private) residence as the place of occurrence of the external cause; I10 Essential (primary) hypertension; E11.9 Type 2 diabetes mellitus without complications; E78.5 Hyperlipidemia, unspecified; I48.91 Unspecified atrial fibrillation; F41.9 Anxiety disorder, unspecified; Z85.3 Personal history of malignant neoplasm of breast
CPT/HCPCS: 70450; 72125; 99283

== ENCOUNTER 2021-03-15 14:25 | Emergency (ER) | payer MEDICARE, BC ==
[~2021-03-15] VITALS: Ht 167.6 cm; Wt 70.8 kg
[2021-03-15] MEDS ORDERED: PIPERACILLIN/TAZOBACTAM 3.375 GM in SODIUM CHLORIDE 0.9% 50ML 50 ML IV ONE (15:30)
[2021-03-15] MEDS ORDERED: HYDROCODONE/APAP 5MG-325MG TAB PO ONE (15:30)
[2021-03-15] MEDS ORDERED: HYDROCODONE/APAP 5MG-325MG TAB ONE (16:16)
[2021-03-15] MEDS ORDERED: SODIUM CHLORIDE 0.9% 50ML 50 ML ONE (16:16)
[2021-03-15] MEDS ORDERED: PIPERACILLIN/TAZOBACTAM 3.375 GM VIAL ONE (16:17)
[2021-03-15] MEDS ORDERED: DOXYCYCLINE HY100 MG PO (17:36)
[2021-03-15] MEDS ORDERED: AUGMENTIN 500-1 EACH PO (17:36)
== END 2021-03-15 17:54 | disposition home or self-care (01) ==
LOC: FSED 15:35
DX: L03.116 Cellulitis of left lower limb (principal); I10 Essential (primary) hypertension; E11.9 Type 2 diabetes mellitus without complications; E78.5 Hyperlipidemia, unspecified; I50.9 Heart failure, unspecified; I48.91 Unspecified atrial fibrillation; I25.10 Atherosclerotic heart disease of native coronary artery without angina pectoris; M54.9 Dorsalgia, unspecified; G89.29 Other chronic pain; Z85.3 Personal history of malignant neoplasm of breast; Z95.0 Presence of cardiac pacemaker
CPT/HCPCS: 73620; 80053; 85025; 87040; 99284; J2543